=== PATIENT | male | born 2000 | race Caucasian/White ===

== ENCOUNTER 2023-11-21 13:46 | Emergency (ER) | payer BC, SELFPAY ==
[2023-11-21 13:47] VITALS: BP 143/69
--- NOTE | 2023-11-21 14:33 | ED.GENMED ---
History of Present Illness
<Kinsey Brito PA-C - Last Filed: 11/21/23 18:36>
General
Chief Complaint: Headache
Source: patient
Exam Limitations: none
Time Seen by Provider: 11/21/23 14:31
Nursing documentation reviewed up to this point in time: agreed with
History of Present Illness
History of Present Illness:
This is a 23 y/o male with a pmh of kidney stones, anxiety, depression presenting emergency department today with concerns of left anterior neck pain and left sided headache for the past 8 days or so. Patient states that this all started back on
November 01 when he felt he hyperextended his neck and started getting some pain. Patient also had some upper extremity numbness and tingling with this. Patient saw his primary care doctor who ordered plain films of his neck shoulder and upper back
which showed narrowing in C4-C5. Patient states his symptoms got better but then they came back and he started to have a pressure in his head and behind his left eye. He also had some paresthesias in his left upper and left lower extremity.
Patient also had periods of lightheadedness with this. Patient states that his headache is worse when he turns his head. Patient rates his pain an 8 out of 10. He still [facility] orthopedic walk-in clinic today who did plain imaging again but sent
him to the emergency department for further evaluation.
Past History
<Kinsey Brito PA-C - Last Filed: 11/21/23 18:36>
Past History
ED Past Medical History: None
Social History
Tobacco: Non-smoker
Review of Systems
<Kinsey Brito PA-C - Last Filed: 11/21/23 18:36>
Review of Systems
All Other Systems: ROS reviewed and negative except as documented in HPI and ROS
Phy Exam
<BETH Griggs Last Filed: 11/21/23 18:36>
Physical Exam
Physical Exam:
General: Patient is well appearing and in no acute distress; non-toxic
Skin: Warm and dry, no rashes or lesions
Head: Normocephalic, atraumatic.
Neck: Patient seen spontaneously moving cervical spine. Tenderness to palpation of the posterior neck, left anterior neck, upper trapezius, and paraspinal muscles.
Eyes: Sclera non-icteric. EOMs intact. PERRLA.
Cardiac: Regular rate and rhythm, no murmurs. No carotid bruits bilaterally.
Peripheral Vascular: No lower extremity swelling or edema.
Pulm: Normal respiratory effort
Neuro: CN II-XII intact, no focal neurologic deficits. Normal finger to nose, heel to stanley testing.
Psychiatric: Appropriate mood and affect.
Course
Karolinelt;Kinsey Brito PA-C - Last Filed: 11/21/23 18:36>
Orders/Labs/Results
Orders:
Orders
11/21/23 15:15
CT Head & Neck Angio W/wo IV Urgent
Reason For Exam: left sided numbness and tingling, left sided heada
11/21/23 15:44
IV Insert/Care/Rem.- Treatment PRN
Ketorolac [Toradol] 15 mg IV NOW STA
Metoclopramide [Reglan] 10 mg IV NOW STA
11/21/23 15:45
0.9% Sodium Chloride 500 ml [Nss] 500 ml IV BOLUS
11/21/23 16:17
0.9% Sodium Chloride 500 ml [Nss] 500 ml IV BOLUS
11/21/23 16:18
Lorazepam [Ativan] 2 mg .ROUTE .STK-MED ONE
11/21/23 16:19
Diphenhydramine [Benadryl] 50 mg .ROUTE .STK-MED ONE
11/21/23 16:21
Diphenhydramine [Benadryl] 25 mg IV NOW STA
Diphenhydramine [Benadryl] 25 mg IV NOW STA
Lorazepam [Ativan] 0.5 mg IV NOW STA
11/21/23 16:49
Basic Metabolic Panel Urgent
Complete Blood Count/With Diff Urgent
Abnormal Lab Results
11/21/23
16:49
MCH 31.1 H pg
(27.0-31.0)
11/21/23 16:49
11/21/23 16:49
Vital Signs
Initial and Last Documented VS:
Initial Vital Signs
Temp Pulse Resp BP Pulse Ox
98.1 F 95 18 143/69 99
11/21/23 13:47 11/21/23 13:47 11/21/23 13:47 11/21/23 13:47 11/21/23 13:47
Last Documented Vital Signs
Temp Pulse Resp BP Pulse Ox
98.1 F 95 16 135/87 99
11/21/23 13:47 11/21/23 18:15 11/21/23 18:15 11/21/23 18:15 11/21/23 18:15
<Kike Garcia MD - Last Filed: 11/21/23 16:26>
Orders/Labs/Results
Orders:
Orders
11/21/23 15:15
CT Head & Neck Angio W/wo IV Urgent
Reason For Exam: left sided numbness and tingling, left sided heada
11/21/23 15:44
IV Insert/Care/Rem.- Treatment PRN
Ketorolac [Toradol] 15 mg IV NOW STA
Metoclopramide [Reglan] 10 mg IV NOW STA
11/21/23 15:45
0.9% Sodium Chloride 500 ml [Nss] 500 ml IV BOLUS
11/21/23 16:17
0.9% Sodium Chloride 500 ml [Nss] 500 ml IV BOLUS
11/21/23 16:18
Lorazepam [Ativan] 2 mg .ROUTE .STK-MED ONE
11/21/23 16:19
Diphenhydramine [Benadryl] 50 mg .ROUTE .STK-MED ONE
11/21/23 16:21
Diphenhydramine [Benadryl] 25 mg IV NOW STA
Diphenhydramine [Benadryl] 25 mg IV NOW STA
Lorazepam [Ativan] 0.5 mg IV NOW STA
11/21/23 16:49
Basic Metabolic Panel Urgent
Complete Blood Count/With Diff Urgent
Abnormal Lab Results
11/21/23
16:49
MCH 31.1 H pg
(27.0-31.0)
11/21/23 16:49
11/21/23 16:49
Vital Signs
Initial and Last Documented VS:
Initial Vital Signs
Temp Pulse Resp BP Pulse Ox
98.1 F 95 18 143/69 99
11/21/23 13:47 11/21/23 13:47 11/21/23 13:47 11/21/23 13:47 11/21/23 13:47
Last Documented Vital Signs
Temp Pulse Resp BP Pulse Ox
98.1 F 95 16 135/87 99
11/21/23 13:47 11/21/23 18:15 11/21/23 18:15 11/21/23 18:15 11/21/23 18:15
Karolinelt;Kinsey Brito PA-C - Last Filed: 11/21/23 18:36>
MDM/Problems Addressed
Differential Diagnosis Includes:
ddx includes carotid artery dissection, aneurysm, subarachnoid hemorrhage, tension headache, complex migraine, cervical radiculopathy, headache,
MDM/Problems Addressed:
Headache, neck pain, neurologic symptoms:
This is a 23 y/o male with a pmh of kidney stones, anxiety, depression presenting emergency department today with concerns of left anterior neck pain and left sided headache for the past 8 days or so. Patient states that this all started back on
November 01 when he felt he hyperextended his neck and started getting some pain. Patient also had some upper extremity numbness and tingling with this. Patient saw his primary care doctor who ordered plain films of his neck shoulder and upper back
which showed narrowing in C4-C5. Physical exam, he is well-appearing, his vital signs are stable, he is afebrile. Does have some tenderness to palpation around the paracervical muscles, does have pain with movement of his neck and reproduction of
his symptoms. Considering this collection of symptoms, patient was sent for CTA which was negative for any acute intracranial abnormality, negative for any high-grade stenosis or occlusion of the arterial vascular and head or neck. Patient was
treated here in emergency department with Toradol and Reglan, patient did have some psychomotor agitation with Reglan, he is given Benadryl and Ativan. The symptoms subsequently resolved and patient states that these medications did improve his
symptoms of head pressure. Patient's symptoms likely represent a complex migraine or radiation of pain from cervical stenosis, patient is stable for discharge, patient's orthopedist that he will follow-up with.
Chronic conditions affecting care:
n/a
Acute Exacerbation and/or Progression of Chronic Illness:
n/a
<Kinsey Brito PA-C - Last Filed: 11/21/23 18:36>
*Pulse Oximetry
Patient hypoxic: no
*Critical Care Note
Total Time (30-74mins, 75-104mins- exclusive of procedures): Not Applicable
Data Reviewed
Review of Other/Old Records Reveals: Records (Reviewed ER physician documentation from 01/16/2021) and Discharge Summary (no discharge summaries in the [facility] to review )
Source: patient
<BETH Griggs Filed: 11/21/23 18:36>
Patient Management
Escalation/DeEscalation of care consider admission/obs:
Patient stable for discharge, admit not indicated
ED Attending Note
<BETH Griggs Filed: 11/21/23 18:36>
-
Portions of this chart may have been created with voice recognition software.� Occasional wrong word or��sound alike� substitutions may have occurred due to the inherent limitations of voice recognition software.
<Kike Garcia MD - Last Filed: 11/21/23 16:26>
ED Attending Note
Patient seen and examined by attending physician: Yes
I performed the substantive portion of visit, reviewed & personally made and approve the management plan that is documented in note by myself or PERI.: Yes
ED Attending Note:
23-year-old male complaining of posterior neck pain with some pain to the left side of his head and some transient paresthesias on the left side of his body days ago. This all seemed of started after hyperextending his neck in a chair. Shortly
after that he developed the posterior neck pain he heard cracks at that time. This was followed by left-sided headaches and some paresthesias to the left part of his body that last 2 to 4 days that have now resolved. Headache is worse when he
turns his head. He has no photophobia, no fever no focal neurologic symptoms at this time.
On exam patient is nontoxic in no distress. He is somewhat self splinting his neck. He is nonfocal. Speech is normal. Deputy General Counsel are normal. He is no carotid bruit. He has got some mild midline spinal cervical tenderness. No crepitus. No swelling.
Impression is essentially nontraumatic neck pain with left-sided headaches. Ongoing for weeks. Transient paresthesias of the left thigh. Workup in progress including evaluation for dissection.
After patient received his Reglan he did develop significant akathisia. He was given a dose of Benadryl and Ativan.
Discharge Plan
Departure
Patient Disposition: Home (Routine Discharge)
Date of Disposition: 11/21/23
Time of Disposition: 18:27
Patient with high blood pressure during this ER visit?: Yes
Condition: Good
Discharge Problem:
Headache, Neck pain
Instructions: Headache, Adult (DC), Neck Pain ED, BLOOD PRESSURE
Prescriptions:
No Action
ondansetron [Zofran ODT] 8 MG tablet,disintegrating
8 mg PO TID PRN (Reason: nausea/vomiting) Qty: 20 0RF
ketorolac 10 MG tablet
10 mg PO Q6HPRN PRN (Reason: pain) Qty: 20 0RF
tamsulosin [Flomax] 0.4 MG capsule
0.4 mg PO DAILY Qty: 14 0RF
oxycodone 5 MG tablet
5 mg PO Q4HPRN PRN (Reason: pain) Qty: 10 0RF
Referrals:
PRIVATE,PHYSICIAN [Family Provider] -
Activity Restrictions/Additional Instructions:
Please follow-up with your orthopedist, please continue physical therapy.
Please return emergency department should you develop visual changes, nausea or vomiting, chest pain, shortness of breath, dizziness, or any other signs or symptoms concerning to you.
Interventions
Interventions:
*Risk Screen - Suicide Last Done: 11/21/23 14:40
*General Assessment Last Done: 11/21/23 14:40
*Neglect/Abuse Screening Last Done: 11/21/23 14:40
ED- Fall Risk Assessment Last Done: 11/21/23 14:40
*ED COVID-19 Vaccine History Last Done: 11/21/23 14:40
ED- Neurological Assessment Last Done: 11/21/23 14:40
Discharge Date and Time
Print Language: MALAYSIAN
[2023-11-21 14:36] VITALS: BMI 33.7
[2023-11-21 14:42] VITALS: BP 117/83
--- NOTE | 2023-11-21 14:44 | EDRN ---
Kim ZUÑIGA in room w/ pt.
[2023-11-21 15:00] VITALS: BP 128/81
--- NOTE | 2023-11-21 15:10 | EDRN ---
Dr. Garcia in to see pt.
[2023-11-21 16:00] VITALS: BP 141/87
[2023-11-21] MEDS: REGLAN 10 MG IV (16:04)
[2023-11-21] MEDS: TORADOL 15 MG IV (16:04)
[2023-11-21] MEDS: NSS 500 IV ×2 (16:05→18:13)
--- NOTE | 2023-11-21 16:15 | EDRN ---
Post initiation of IV and while administering the Toradol pt started to develop multiple completes and hyperventilating, Post the administration of reglan pt became even worse. Unable to find Kim ZUÑIGA as in w/ other pt so, asked Dr. Garcia to
check on pt and he went in to see pt at this time.
[2023-11-21] MEDS: BENADRYL 25 MG IV (16:22)
[2023-11-21] MEDS: ATIVAN 0.5 MG IV (16:22)
--- NOTE | 2023-11-21 16:30 | EDRN ---
Pt states he remains w/ sl eye pain, but pain in base of skull and bridge of nose remain 7/10. Pt states anxious feeling is less at this time.
[2023-11-21 16:59] LABS: % Basophils 0.7 % (0-2); % Eosinophils 1.3 % (0-6); % Immature Granulocytes 0.2 % (0-0.5); % Lymphocytes 38.6 % (20.5-51.1); % Monocytes 5.4 % (1.7-9.3); % Neutrophils 53.8 % (42.2-75.2); Absolute Eosinophils 0.1 10^3/uL (0-0.7); Absolute Lymphocytes 2.2 10^3/uL (1.2-3.4); Absolute Monocytes 0.3 10^3/uL (0.1-0.6); Hemoglobin 15.5 g/dL (13.0-18.0); Mean Corp Hgb Conc. 36.9 g/dL (33.0-37.0); Mean Corpuscular Hgb 31.1 pg (27.0-31.0); Mean Corpuscular Volume 84.3 fL (80.0-94.0); Mean Platelet Volume 8.7 fL (7.4-10.4); Nucleated Red Blood Cells % 0 % (-); Platelet Count 234 10^3/uL (130-400); Red Blood Cell Count 4.98 10^6/uL (4.70-6.10); Red Cell Dist. Width 11.9 % (11.5-14.5); White Blood Cell Count 5.6 10^3/uL (4.8-10.8)
[2023-11-21 17:00] VITALS: BP 135/74
[2023-11-21 17:14] LABS: Blood Urea Nitrogen 15 mg/dl (9-20); Calcium 9.4 mg/dl (8.4-10.2); Carbon Dioxide 25 mmol/L (22-30); Chloride 104 mmol/L (98-107); Estimated Creatinine Clearance > 125 ml/min; Glucose 95 mg/dl (70-99); Potassium 3.8 mmol/L (3.5-5.1); Sodium 138 mmol/L (135-145); eGFR > 60.00
--- NOTE | 2023-11-21 17:50 | EDRN ---
Pt states he is no longer feeling anxious at all though pain/pressure at base of skull is still a 7/10 and bridge of nose pain at 6/10 and eye pressure pain at 2/10 now.
[2023-11-21 18:15] VITALS: BP 135/87
== END 2023-11-21 18:41 | disposition home or self-care (01) ==
LOC: EMR 13:46
PROVIDERS: EMERGENCY PHYSICIAN Emergency Medicine
DX: R51.9 Headache, unspecified (principal); M54.2 Cervicalgia; F41.9 Anxiety disorder, unspecified; Z87.442 Personal history of urinary calculi
CPT/HCPCS: 99284; 96374; 96375; 96361; 70496; 70498; 80048; 85025; Q9967

== ENCOUNTER 2023-12-07 22:39 | Observation (INO) | payer BC, SELFPAY ==
[2023-12-07 17:25] VITALS: BP 167/92
[2023-12-07 17:44] LABS: % Basophils 0.6 % (0-2); % Eosinophils 1.9 % (0-6); % Immature Granulocytes 0.1 % (0-0.5); % Lymphocytes 32.6 % (20.5-51.1); % Neutrophils 58.8 % (42.2-75.2); Absolute Eosinophils 0.1 10^3/uL (0-0.7); Absolute Lymphocytes 2.2 10^3/uL (1.2-3.4); Absolute Monocytes 0.4 10^3/uL (0.1-0.6); Hematocrit 45.7 % (39.0-52.0); Hemoglobin 16.8 g/dL (13.0-18.0); Mean Corp Hgb Conc. 36.8 g/dL (33.0-37.0); Mean Corpuscular Hgb 32.1 pg (27.0-31.0); Mean Corpuscular Volume 87.2 fL (80.0-94.0); Mean Platelet Volume 8.7 fL (7.4-10.4); Nucleated Red Blood Cells % 0 % (-); Platelet Count 277 10^3/uL (130-400); Red Blood Cell Count 5.24 10^6/uL (4.70-6.10); Red Cell Dist. Width 11.8 % (11.5-14.5); White Blood Cell Count 6.8 10^3/uL (4.8-10.8)
[2023-12-07 17:57] LABS: ALT (SGPT) 33 U/L (0-50); AST (SGOT) 25 U/L (17-59); Alkaline Phosphatase 71 U/L (38-126); Blood Urea Nitrogen 18 mg/dl (9-20); Calcium 9.9 mg/dl (8.4-10.2); Carbon Dioxide 29 mmol/L (22-30); Chloride 101 mmol/L (98-107); Glucose 80 mg/dl (70-99); Sodium 138 mmol/L (135-145); Total Bilirubin 0.7 mg/dl (0.2-1.3); Total Protein 7.8 g/dl (6.3-8.2); eGFR > 60.00
--- NOTE | 2023-12-07 18:07 | ED.GENMED ---
History of Present Illness
<Adrianna Espinal POLYSTYRENE MOLDING MACHINE TENDER - Last Filed: 12/07/23 23:09>
General
Chief Complaint: Weakness
Source: patient
Exam Limitations: none
Time Seen by Provider: 12/07/23 18:07
Nursing documentation reviewed up to this point in time: agreed with
History of Present Illness
History of Present Illness:
23-year-old male with history of significant hyperextension of his neck 10/13, next day had left side neck pain
11/07 waves of 'strange feeling like when you hit your funny bone from left side of head down left side of body to ends of arm and leg.
11/09 PCP assumed herniated disc
11/10 began with intermittent nausea, no vomiting and continuing pain left side body
11/11 pressure around his nose then spread to entire left side of head'felt like my brain was being squeezed and something's gonna pop.'
Holding his head in place with his hands seemed to relieve some of the pressure.
has been having waxing and waning pressure in his head, behind his eyes, 'feels like my eyes are going to pop out sometimes,' neck pain and feeling off balance at times since.
Evaluated here on 11/21/23, head/neck CTA unremarkable at that time.
Has seen PCP who referred to orthopedics. Orthopedics ordered MRI w/o IV contrast which pt had on 12/13 and got the result on his phone today. Called to make a f/u appointment with ortho but nothing available until Dec. so he came here with his mom
who is also concerned about his persistent symptoms.
Pt states he's been resting or laying down most of this past month due to symptoms
Neuro exam is unremarkable now.
Past History
<Adrianna Espinal, POLYSTYRENE MOLDING MACHINE TENDER - Last Filed: 12/07/23 23:09>
Past History
ED Past Medical History: None
Social History
Tobacco: Non-smoker
Review of Systems
<Adrianna Espinal [employer]STYRENE MOLDING MACHINE TENDER - Last Filed: 12/07/23 23:09>
Review of Systems
Allergies reviewed?: Yes
All Other Systems: ROS reviewed and negative except as documented in HPI and ROS
Constitutional: Denies fever or fatigue
Respiratory: Denies trouble breathing
Cardiac: Denies chest pain
ABD/GI: Reports nausea; Denies abdominal pain or vomiting
: Reports no symptoms
Musculoskeletal: Reports neck pain
Skin: Reports no symptoms
Neurological: Reports headache
Phy Exam
<Adrianna Espinal [employer]STYRENE MOLDING MACHINE TENDER - Last Filed: 12/07/23 23:09>
Physical Exam
Physical Exam:
GENERAL: No acute distress. A&Ox3.
CONSTITUTIONAL: Afebrile.
EYES: PERRL, conjunctivae normal, sharp discs
Neck: Supple
ENMT: moist mucus membranes, Pharynx nl
RESPIRATORY: Regular respirations, nonlabored, lungs clear.
CARDIOVASCULAR: Regular rate and rhythm, no murmurs, no rubs.
GI: Soft, nontender, normal BS
MUSCULOSKELETAL: Moves with ease. Well perfused.
SKIN: Warm, dry, pink
PSYCH: Normal mood and affect. Well kept, interactive and appropriate
NEUROLOGIC: Awake, alert and oriented. Speech clear. Cranial nerves II through XII intact. [id number] intact. Ambulating well with steady gait. No focal neurological deficits
Course
<Adrianna Espinal [employer]ST[employer] MOLDING MACHINE TENDER - Last Filed: 12/07/23 23:09>
Orders/Labs/Results
Orders:
Orders
12/07/23 Breakfast
Regular
12/07/23 17:33
Complete Blood Count/With Diff Urgent
Comprehensive Metabolic Panel Urgent
Protime/PTT Urgent
12/07/23 22:03
Admit/Transfer Patient As Directed
Co-Sign Provider:
Level of Care: Observation services
Assign to:: Medical/Surgical
Physician / Group: angel
Diagnosis: neck pain
Code Status As Directed
Resuscitation Status: Full Code
PRN Pain Medication Management As Directed
May give lesser potent ordered pain med per pt: Yes
preference::
Protocol:: Medication orders for pain may be administered in a
manner that supports deferring to patient preference
when the pt is:
- Requesting an ordered lesser potent pain medication.
Least to most potent pain medications are defined
as: acetaminophen < NSAID < tramadol < opioids
(morphine, oxycodone, hydromorphone).
- Requesting a lesser dose of the same medication IF
ORDERED.
- Requesting a less intrusive route of administration
if both routes are prescribed by the provider (PO <
IV).
12/07/23 22:05
Neurosurgery Consult Routine
Consulting Provider: Augustin Lee
Was physician already notified: Yes
12/07/23 22:53
Acetaminophen [Tylenol] 650 mg PO Q4HPRN PRN
Bisacodyl [Dulcolax] 10 mg RECTAL [id number] PRN
Docusate W/Senna [Senokot-S] 1 tablet PO BIDPRN PRN
Polyethylene Glycol Powder [Miralax] 17 grams PO DAILYPRN PRN
12/07/23 22:53
Cervical Spine Without & W [MR Cervical Spine Without & W] Routine
Comment:
Reason For Exam: neck pain
Recent pill cam endoscopy?: No
MRI Brain [MR Brain W/o & With Contrast] Routine
Comment:
Reason For Exam: head pressure
Recent pill cam endoscopy?: No
Activity As Directed
Activity Level: As Tolerated
Pneumatic Compression Sleeves As Directed
Type: Knee high
Vital Signs As Directed
Frequency: Per unit guidelines
DX Deep Vein Thrombosis Video Routine
12/07/23 22:58
Cyclobenzaprine HCl [Flexeril] 5 mg PO DAILYPRN PRN
12/08/23 06:00
Basic Metabolic Panel IN AM
Complete Blood Count/No Diff IN AM
Abnormal Lab Results
12/07/23
17:33
MCH 32.1 H pg
(27.0-31.0)
12/07/23 17:33
12/07/23 17:33
Vital Signs
Initial and Last Documented VS:
Initial Vital Signs
Temp Pulse Resp BP Pulse Ox
98.4 F 93 18 167/92 99
12/07/23 17:25 12/07/23 17:25 12/07/23 17:25 12/07/23 17:25 12/07/23 17:25
Last Documented Vital Signs
Temp Pulse Resp BP Pulse Ox
97.9 F 77 18 136/63 98
12/07/23 22:45 12/07/23 22:45 12/07/23 22:45 12/07/23 22:45 12/07/23 22:45
<Lenard Roque MD - Last Filed: 12/07/23 19:11>
Orders/Labs/Results
Orders:
Orders
12/07/23 Breakfast
Regular
12/07/23 17:33
Complete Blood Count/With Diff Urgent
Comprehensive Metabolic Panel Urgent
Protime/PTT Urgent
12/07/23 22:03
Admit/Transfer Patient As Directed
Co-Sign Provider:
Level of Care: Observation services
Assign to:: Medical/Surgical
Physician / Group: angel
Diagnosis: neck pain
Code Status As Directed
Resuscitation Status: Full Code
PRN Pain Medication Management As Directed
May give lesser potent ordered pain med per pt: Yes
preference::
Protocol:: Medication orders for pain may be administered in a
manner that supports deferring to patient preference
when the pt is:
- Requesting an ordered lesser potent pain medication.
Least to most potent pain medications are defined
as: acetaminophen < NSAID < tramadol < opioids
(morphine, oxycodone, hydromorphone).
- Requesting a lesser dose of the same medication IF
ORDERED.
- Requesting a less intrusive route of administration
if both routes are prescribed by the provider (PO <
IV).
12/07/23 22:05
Neurosurgery Consult Routine
Consulting Provider: Augustin Lee
Was physician already notified: Yes
12/07/23 22:53
Acetaminophen [Tylenol] 650 mg PO Q4HPRN PRN
Bisacodyl [Dulcolax] 10 mg RECTAL [id number] PRN
Docusate W/Senna [Senokot-S] 1 tablet PO BIDPRN PRN
Polyethylene Glycol Powder [Miralax] 17 grams PO DAILYPRN PRN
12/07/23 22:53
Cervical Spine Without & W [MR Cervical Spine Without & W] Routine
Comment:
Reason For Exam: neck pain
Recent pill cam endoscopy?: No
MRI Brain [MR Brain W/o & With Contrast] Routine
Comment:
Reason For Exam: head pressure
Recent pill cam endoscopy?: No
Activity As Directed
Activity Level: As Tolerated
Pneumatic Compression Sleeves As Directed
Type: Knee high
Vital Signs As Directed
Frequency: Per unit guidelines
DX Deep Vein Thrombosis Video Routine
12/07/23 22:58
Cyclobenzaprine HCl [Flexeril] 5 mg PO DAILYPRN PRN
12/08/23 06:00
Basic Metabolic Panel IN AM
Complete Blood Count/No Diff IN AM
Abnormal Lab Results
12/07/23
17:33
MCH 32.1 H pg
(27.0-31.0)
12/07/23 17:33
12/07/23 17:33
Vital Signs
Initial and Last Documented VS:
Initial Vital Signs
Temp Pulse Resp BP Pulse Ox
98.4 F 93 18 167/92 99
12/07/23 17:25 12/07/23 17:25 12/07/23 17:25 12/07/23 17:25 12/07/23 17:25
Last Documented Vital Signs
Temp Pulse Resp BP Pulse Ox
97.9 F 77 18 136/63 98
12/07/23 22:45 12/07/23 22:45 12/07/23 22:45 12/07/23 22:45 12/07/23 22:45
<Adrianna Espinal [employer] MOLDING MACHINE TENDER - Last Filed: 12/07/23 23:09>
MDM/Problems Addressed
MDM/Problems Addressed:
has been having waxing and waning pressure in his head, behind his eyes, 'feels like my eyes are going to pop out sometimes,' neck pain and feeling off balance at times since.
Evaluated here on 11/21/23, head/neck CTA unremarkable at that time.
Has seen PCP who referred to orthopedics. Orthopedics ordered MRI w/o IV contrast which pt had on 12/13 and got the result on his phone today. Called to make a f/u appointment with ortho but nothing available until Dec. so he came here with his mom
who is also concerned about his persistent symptoms.
Pt states he's been resting or laying down most of this past month due to symptoms
Neuro exam is unremarkable now.
17:33
CBC normal
CMP normal
Consulting Dr. Lee who is in surgery
9:30 p.m.
Consulted Neurosurgeon Dr. Lee who recommends brain MRI.
Copy of Cervical spine MRI from [facility] uploaded into our [facility] system
Hospitalist notified of admission
<Adrianna Espinal NP - Last Filed: 12/07/23 23:09>
*Critical Care Note
Total Time (30-74mins, 75-104mins- exclusive of procedures): Not Applicable
<Lenard Roque MD - Last Filed: 12/07/23 19:11>
Update Note
Update Note:
ED Attending Note
<Adrianna Espinal NP - Last Filed: 12/07/23 23:09>
-
Portions of this chart may have been created with voice recognition software.� Occasional wrong word or��sound alike� substitutions may have occurred due to the inherent limitations of voice recognition software.
Discharge Plan
Departure
Patient Disposition: Admit
Date of Disposition: 12/07/23
Time of Disposition: 21:31
Admit to: Med/Surg
Presentation/result/management discussed w/ accepting MD/DO: Hospitalist
Condition: Good
Discharge Problem:
Pressure in head, Frequent headaches
Interventions
Interventions:
*Risk Screen - Suicide Last Done: 12/07/23 17:25
*General Assessment Last Done: 12/07/23 17:25
*Neglect/Abuse Screening Last Done: 12/07/23 17:25
*ED COVID-19 Vaccine History Last Done: 12/07/23 17:25
*Nursing Disposition Last Done: 12/07/23 22:41
ED- Cardiac Assessment Last Done: 12/07/23 19:17
ED- Neurological Assessment Last Done: 12/07/23 19:17
ED- Pulmonary Assessment Last Done: 12/07/23 19:17
Discharge Date and Time
Discharge Date/Time: 12/07/23 22:42
[2023-12-07 18:19] LABS: APTT 28.8 Sec (23.4-35.0); INR 1.11; PT 14.3 Sec (11.4-14.6)
[2023-12-07 20:11] VITALS: BP 117/77
--- NOTE | 2023-12-07 21:33 | HPS.HSE ---
Addendum entered and electronically signed by Jared Reyna DO 12/07/23 22:58:
Patient seen and examined independently. Agree with findings and plan as set forth by BOB Quinn.
Patient is a 23y M with no significant PMH who presents to ED complaining of headache x 1 month. Patient describe initial insult at that time of leaning back quickly / hyperextending his neck followed by sense of tingling in his L face. he then
developed pressure in the bi-frontal area and behind the eyes that has persisted. Early this week his symptoms seemed changes with more R sided headache and N/V x 1.
Patient had OP MRI completed that showed signal abnormality in the cervical spine. Gadolinium enhanced imaging of the brain and spine was recommended by Radiology.
Ass:
Headache
Abnormal MRI
Plan:
Observe overnight for further evaluation and treatment.
Check MRI brain and C-spine with and without contrast.
Neurosurgery consulted by ED.
Follow for any changes in symptoms / new developments.
Original Note:
Family Physician
-
Family Physician: NOT KNOW UNKNOWN - PT DOES
Chief Complaint
-
head pressure
History of Present Illness
23 year old with PMH for kidney stones presented to us with head pressure which he felt behind his head,eyes and nose for past one month. his pain started when looked back an extended his back. last week his symptoms were very mild. he had an x
ray, which showed herniated disk. Monday he felt very right sided cluster LOPEZ. Monday, he vomited once. he did not feel the hunger. he forced himself to eat some food. today he woke up with balance problem. at present still with neck pain. his
appointment with orthopedics is not until 01/11. he went to his PCP, who send him to ER. he had MRI last week with the impression of Bulge cervical disk and recommended MRI of brain.
labs stable. admitting for further management.
Medical History
Past Medical History
Past Medical History: Reports Other
Additional Past Medical History:
kidney stones
Past Surgical History: Reports None
Additional Past Surgical History:
wisdom tooth extraction
Social History
Tobacco: Non-smoker
Alcohol: Occasional
Drug: None
Personal: Single
Living: With Family
Family History
Family History: Not pertinent
Allergies / Home Medications
Allergies reflects when Allergies were last updated in [facility].
Home Medications with original date entered in [facility]
Allergy/Medication List:
Allergies
Allergy/AdvReac Type Severity Reaction Status Date / Time
No Known Allergies Allergy Verified 12/07/23 17:27
Home Medications
acetaminophen 325 mg tablet 650 mg PO Q4HPRN PRN mild pain 12/07/23
cyclobenzaprine 5 mg tablet 5 mg PO DAILYPRN PRN muscle spasms 12/07/23
ibuprofen 600 mg tablet 600 mg PO DAILYPRN PRN neck pain 12/07/23
Review of Systems
-
Constitutional: Reports No Symptoms
EENT: Reports No Symptoms
Respiratory: Reports No Symptoms
Cardiac: Reports No Symptoms
Abdomen/GI: Reports Nausea and Vomiting
: Reports No Symptoms
Musculoskeletal: Reports No Symptoms
Skin: Reports No Symptoms
Neurological: Reports Dizzy, Headache and Weakness
Endocrine: Reports No Symptoms
Hematologic/Lymphatic: Reports No Symptoms
Psych: Reports No Symptoms
Physical Exam
Vital Signs
Vital Signs
Temp Pulse Resp BP Pulse Ox
98.4 F 93 18 117/77 100
12/07/23 17:25 12/07/23 20:11 12/07/23 17:25 12/07/23 20:11 12/07/23 20:11
Physical Exam
General: Well Developed, Well Nourished and No Apparent Distress
HEENT: NormoCephalic, Moist mucous membranes and Atraumatic
Respiratory: Clear
Cardiac: S1/S2 and Regular Rhythm; No Murmur or Rub
GI: Soft, Non Tender, Non Distended and Normal Bowel Sounds; No Organomegaly
Rectal: Deferred by Provider
Musculoskeletal: No Clubbing, No Cyanosis and No Edema
Skin: No Rash
Neuro: AO x 3 and Nonfocal/grossly intact
Psych: Calm
Laboratory Results
-
12/07/23 17:33
12/07/23 17:33
Laboratory Results
PT 14.3 Sec (11.4-14.6) 12/07/23 17:33
INR 1.11 12/07/23:
APTT 28.8 Sec (23.4-35.0) 12/07/23 17:33
Total Bilirubin 0.7 mg/dl (0.2-1.3) 12/07/23 17:33
AST 25 U/L (17-59) 12/07/23 17:33
ALT 33 U/L (0-50) 12/07/23 17:33
Alkaline Phosphatase 71 U/L (38-126) 12/07/23 17:33
Data Reviewed
-
CT Scan: Report Reviewed by me
Lab Data: Labs Reviewed by me
Impression/Plan
-
#head pressure/neck pain unclear cause
-will obtain MRI of head and C spine
-neurosurgeon consulted
-Flexeril and Tylenol continued
-head Neck CTA with No acute intracranial abnormality.No CTA evidence for high-grade stenosis or occlusion of the arterial vasculature in the head or neck.
-will obtain MRI of spine and Brain
#DVT prophylaxis
-scd
#CODE status
-full code
[2023-12-07 22:45] VITALS: BP 136/63; BMI 32.1
[2023-12-08 07:45] VITALS: BP 117/75
[2023-12-08 08:53] LABS: Blood Urea Nitrogen 19 mg/dl (9-20); Calcium 9.4 mg/dl (8.4-10.2); Carbon Dioxide 28 mmol/L (22-30); Chloride 101 mmol/L (98-107); Estimated Creatinine Clearance > 125 ml/min; Glucose 96 mg/dl (70-99); Potassium 4.1 mmol/L (3.5-5.1); Sodium 140 mmol/L (135-145); eGFR > 60.00
[2023-12-08 09:01] LABS: Hematocrit 43.8 % (39.0-52.0); Hemoglobin 16.2 g/dL (13.0-18.0); Mean Corpuscular Hgb 32.2 pg (27.0-31.0); Mean Corpuscular Volume 87.1 fL (80.0-94.0); Mean Platelet Volume 8.7 fL (7.4-10.4); Platelet Count 237 10^3/uL (130-400); Red Blood Cell Count 5.03 10^6/uL (4.70-6.10); Red Cell Dist. Width 11.8 % (11.5-14.5); White Blood Cell Count 6.2 10^3/uL (4.8-10.8)
--- NOTE | 2023-12-08 11:48 | W.PN.HOSP.TC ---
Today's Communication/Plan
-
Follow-up MRI brain and C-spine
Follow-up neurosurgery recommendations
Possible discharge later
Assessment / Plan
Assessment / Plan
#Cervicalgia
#Cervicogenic headache
#H/O cervical vertebral herniation
-Symptoms occurred after falling from chair, heard a crack, outpatient MRI showed herniated disc in neck
-CT head and CTA head and neck were without any acute findings or evidence of high-grade stenosis
-Initially had some paresthesias down the LUE>LLE; also associated with pressure behind the left eye
-No abnormal lacrimation or sweating, suspicion for processes like Viridiana syndrome or extremely low
-5/5 strength, no sensory deficits to the upper extremities; reproducible pain to the left cervical region
-MRI of the brain and C-spine are pending, will follow-up results
-Neurology consult pending
-Flexeril Tylenol as needed for symptoms
DVT prophylaxis: scd
CODE status: Full code
Diet: House
Anticipated Discharge: Within 24 hours
Subjective/Interval History
-
Date of Service: December 08, 2023
Seen and examined at the bedside. States he does have some discomfort in the neck with pressure behind the left eye. No worse than previously, slightly better.
He denies any chest pain, shortness of breath, fevers or chills, nausea/vomiting/diarrhea, urinary issues, weakness or paresthesias.
He mentions his injury first occurred when he was leaning back on a chair, hyperextended his neck and heard a crack. He developed sensations of paresthesias into the left side extremities initially, with headache and pressure behind the left eye.
The symptoms were intermittent over the following weeks. States he had an MRI as an outpatient that showed some evidence of cervical disc herniation.
Objective Data
-
Labs:
Laboratory Results
12/08/23
08:12
WBC 6.2
Hgb 16.2
Hct 43.8
Plt Count 237
Sodium 140
Potassium 4.1
Chloride 101
Carbon Dioxide 28
BUN 19
Creatinine 0.9
Glucose 96
Calcium 9.4
Vital Signs:
Vital Signs
Temp Pulse Resp BP Pulse Ox
97.9 F 85 19 117/75 97
12/08/23 07:45 12/08/23 07:45 12/08/23 07:45 12/08/23 07:45 12/08/23 07:45
I&O
12/07/23 12/08/23 12/09/23
06:59 06:59 06:59
Intake Total 480 / 480
Balance 480 / 480
Review of Systems
-
History Source: Patient
All other systems: Reviewed and negative
Physical Exam
-
General: Well Nourished, No Apparent Distress, Comfortable and Conversant
HEENT: Normocephalic, Atraumatic, Moist Mucous Membranes and Anicteric
Respiratory: Clear to Auscultation and Non Labored Respirations; Negative Wheezes, Rales or Rhonchi
Cardiac: Regular Rhythm and S1/S2; Negative Murmur, Rub or Gallop
GI: Soft, Nontender, Nondistended and Normal Bowel Sounds
Musculoskeletal: No Clubbing, No Cyanosis, No Edema and Other (Tenderness to left-sided cervical palpation)
Skin: Warm and Dry; Negative Rash or Jaundice
Neuro: AO x 3, Nonfocal/Grossly Intact, Central Nerve's Intact and Other (5/5 MMS to all extremities, no gross sensory deficits, DTR intact. PERRL though dilated at baseline, EOMI.)
Hematologic / Lymphatic: No Lymphadenopathy
--- NOTE | 2023-12-08 12:07 | CON.NS ---
Consultation
-
Date/Time Consultation Performed: 12:15 pm; 12/08/2023
Performing Provider: Gatito
Chief Complaint
History of Present Illness
This is a neurosurgical consultation on 23-year-old gentleman, who presented with symptoms of head pressure x 1 month. He reports that the pain started when he looked back, and extended his back. He reports that he had an x-ray, which demonstrated
a herniated disc. He is also had lack of appetite, and vomiting. He felt that he was having balance difficulties, with ongoing neck pain. He went to his primary care physician, who sent him to the emergency room.
Patient had an MRI with the impression of a possible disc bulge, and it is reported that he was advised to get an MRI of the brain.
Patient presents for MRI of the brain, and spine, for reported signal abnormality in the cervical spine.
At the time of encounter, patient was an MRI scan. Therefore, unable to complete neurological examination of the patient. Mother was in the room.
Additional history was obtained to the mother. She reports that at the end of September, he was laughing, and bent his head and neck back, and then since then he has been having symptoms of bilateral neck pain, pressure-like in sensation in his head,
behind his eye, with intermittent associated nausea and vomiting. Symptoms are not constant or sustainable. He was seen approximately 1 week prior in the emergency room, at which time CT of the head and neck was negative. Mother reports that
outpatient MRI may have reported some abnormality within the cervical spine ? Syrinx? And therefore patient was advised to present for additional imaging.
Review of Systems
-
10 point review of systems was performed, including, constitutional, ENT, cardiovascular, respiratory, GI, , hematologic, neurologic, endocrinologic, musculoskeletal and was negative except for as stated in HPI.
Medication and Allergies
Home Medications
Home Medications
�Medication �Instructions �Recorded
acetaminophen 325 mg tablet 650 mg PO Q4HPRN PRN mild pain 12/07/23
cyclobenzaprine 5 mg tablet 5 mg PO DAILYPRN PRN muscle spasms 12/07/23
ibuprofen 600 mg tablet 600 mg PO DAILYPRN PRN neck pain 12/07/23
Allergies
Allergies
Allergy/AdvReac Type Severity Reaction Status Date / Time
No Known Allergies Allergy Verified 12/07/23 17:27
Physical Exam
-
Exam:
Unable to examine patient, as he was in MRI.
CTA of the head and neck performed on 11/21/2023 was reviewed. No obvious evidence of carotid irregularity is seen to suggest carotid dissection patient has dominant left vertebral artery.
CTA was reviewed with radiologist, who did not feel that there was any obvious evidence of vertebral artery abnormality/injury.
MRI of the cervical spine performed on 12/01/2023 was reviewed. Patient has a slightly retroflexed odontoid. There is a minimal disc bulge noted at C5-C6. On T2 sagittal imaging, there is a questionable hyperintensity which may be artifactual
versus real. This is not quite at apparent on STIR sagittal sequences. Thin linear signal abnormality is seen at C5-C6 down to C6-C7 which may be consistent with possible syrinx?
Problems
-
Problem Status Onset Code
Frequent headaches R51.9
Pressure in head R51.9
Assessment / Plan
-
23 yo M presents with symptoms of head pressure, neck pain, and nausea and vomiting.
Will follow-up on MRI of the brain/cervical spine.
Discussed CTA with radiologist, Dr. Baldemar Ruth, who feels confidently that there is no obvious evidence of vertebral artery abnormality. He does not recommend obtaining an MRA.
--- NOTE | 2023-12-08 14:51 | CM ---
Patient was admitted under OBS, OBS letter completed and placed on chart. Patient lives with parents, is independent with adl's and ambulation, no dme.
Pharmacy; [facility]
Plan; Home with parents when stable.
[2023-12-08 15:35] VITALS: BP 123/82
[2023-12-08 22:23] VITALS: BP 120/78
[2023-12-08 23:00] VITALS: BP 136/93
[2023-12-08] MEDS: FLEXERIL 5 MG PO (23:13)
[2023-12-08] MEDS: TYLENOL 650 MG PO (23:14)
--- NOTE | 2023-12-08 23:25 | PTCARENOTE ---
Patient complained of worsening neck pain overnight that began to radiate from left to right side of neck as well as 'head pressure.' VSS. Pt. stated that when he went into the bathroom he started to feel dizzy so he returned back to bed. Pt. also
c/o new difficulty with swallowing which he 'has had in the past a few times but it has gone away on its own.' Bedside swallow passed w/out issue. No neck swelling observed by this nurse. Flexeril and tylenol given per PRN order. Provider notified.
Plan of care ongoing.
[2023-12-09] MEDS: MOTRIN 600 MG PO (01:06)
--- NOTE | 2023-12-09 02:29 | W.PN.UPDATE ---
Update Note
Progress Note Update
1900 Notified by RN that patient stated he was having difficulty swallowing. RN performed bedside swallow, which pt passed. VSS no stridor speaking complete sentences
2300 notified by RN that patient stated 'the neck pain is worsening and he feels like his neck is stiff and bulging.' Pt asking for provider to come to bedside to assess him. He was given flexeril, tylenol and motrin for pain and neck spasm
0100 On assessment, patient resting comfortably in bed. VSS, no stridor noted, no SOB. Patient stated his throat pain and swallowing issues have subsided. He is just complaining of right sided head pain, specifically pressure 3/10 pain. He pointed
to the front on his head and occipital region. He denies photophobia, phonophobia, osmophobia. He denies history of migraines or family history of migraines. He denies nausea, dizziness or lightheadedness. Denies weakness or paresthesias.
[2023-12-09 07:00] VITALS: BP 117/78
--- NOTE | 2023-12-09 11:30 | W.PN.HOSP.TC ---
Today's Communication/Plan
-
Follow-up neurosurgery recommendations for syrinx
Continue with as needed Tylenol and Flexeril
Assessment / Plan
Assessment / Plan
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
#Cervicalgia
#Cervicogenic headache
#H/O cervical vertebral herniation
-Symptoms occurred after falling from chair, heard a crack, outpatient MRI showed herniated disc in neck
-CT head and CTA head and neck were without any acute findings or evidence of high-grade stenosis
-Initially had some paresthesias down the LUE>LLE; also associated with pressure behind the left eye
-No abnormal lacrimation or sweating, suspicion for processes like Viridiana syndrome or extremely low
-5/5 strength, no sensory deficits to the upper extremities; reproducible pain to the left cervical region
-Neurology consult pending, will defer to them for decision on this inpatient intervention
-Flexeril and Tylenol as needed for symptoms
#Thyroid nodule
-Noted on his MRI yesterday, 6 mm in size
-Will need to follow-up with PCP for TSH and thyroid US
DVT prophylaxis: scd
CODE status: Full code
Diet: House
Anticipated Discharge: Within 24 hours
Subjective/Interval History
-
Date of Service: December 09, 2023
Seen and examined at the bedside. Overnight he had recurrent of his symptoms, received Tylenol and cyclobenzaprine with relief. Seems a little bit tired today, did not sleep well following that.
He denies any chest pain, shortness of breath, fevers or chills, nausea, vomiting, diarrhea, urinary issues. He states that he does occasionally get tingling down into the tips of his fingers, other denies any outright weakness. States that his
tenderness to the posterior portions of his neck is still present but better.
Objective Data
-
Vital Signs:
Vital Signs
Temp Pulse Resp BP Pulse Ox
97.5 F 75 16 117/78 100
12/09/23 07:00 12/09/23 07:00 12/09/23 07:00 12/09/23 07:00 12/09/23 07:00
I&O
12/08/23 12/09/23 12/10/23
06:59 06:59 06:59
Intake Total 480 / 480 480 / 480
Balance 480 / 480 480 / 480
Review of Systems
-
History Source: Patient
All other systems: Reviewed and negative
Physical Exam
-
General: No Apparent Distress and Comfortable
HEENT: Normocephalic, Atraumatic, Moist Mucous Membranes and Anicteric
Respiratory: Clear to Auscultation and Non Labored Respirations
Cardiac: Regular Rhythm and S1/S2; Negative Murmur, Rub or Gallop
GI: Soft, Nontender, Nondistended and Normal Bowel Sounds
Musculoskeletal: No Clubbing, No Cyanosis and No Edema
Skin: Warm and Dry; Negative Rash
Neuro: AO x 3, No Motor Deficits, Central Nerve's Intact, No Sensory Deficits and DTR's Intact & Symmetrica; Negative Tremors
Data Reviewed
-
MRI: Report Reviewed by me and Discussed with Patient
Labs: Labs Reviewed by me and Discussed with Patient
--- NOTE | 2023-12-09 13:40 | W.DCSUMMARY ---
Discharge Summary
Discharge Data
Date of Admission: 12/07/23
Date of Discharge: 12/09/23
-
Pending Results: No
Hospital Course
Presented with neck pain and discomfort behind the left eye. Recently had a injury where he heard a crack in his neck. Outpatient MRI showed cervical vertebral herniation. Upon arrival here he had no focal neurological deficits that did have
intermittent symptoms while hospitalized. MRI of the brain showed mild herniation of C5/C6 annulus. Also demonstrated syrinx, and low-lying cerebellar tonsils though not meeting criteria for Chiari malformation. Symptoms were managed with Tylenol
and Flexeril throughout hospitalization. Discharged with follow-up to PCP and neurosurgery.
Of note, MRI showed 6 mm thyroid nodule. Patient should have follow-up with PCP for thyroid ultrasound and TSH testing.
Discharge Plan
-
Patient Disposition: Home (Routine Discharge)
Discharge Diagnosis/Procedures: Cervicalgia
Syrinx
Condition: Good
Diet: No restrictions
Activity: As tolerated
Driving Restrictions: As prior to admission
Bathing Restrictions: None
Blood Work: N/A
Others Tests: N/A
Specialty Instructions: Weigh Daily- Call MD for wt gain/loss 3 lbs overnight/5 lbs in 1 week
Instructions: Neck pain
Referrals:
Kike Arriaga, [Community] - (If needed)
Berna Mederos MD [Active] - in less than 1 week (If needed)
UNKNOWN - PT DOES,NOT KNOW [Family Provider] -
Additional Discharge Medication Instructions: Continue Tylenol every 4 hours as needed
Continue cyclobenzaprine 5 mg daily as needed
Continue ibuprofen as needed, avoid excess NSAIDs (ibuprofen, Motrin, Aleve, naproxen)
Prescriptions:
Continued
acetaminophen 325 mg Tablet
650 mg PO Q4HPRN PRN (Reason: mild pain)
ibuprofen 600 mg tablet
600 mg PO DAILYPRN PRN (Reason: neck pain)
cyclobenzaprine 5 mg tablet
5 mg PO DAILYPRN PRN (Reason: muscle spasms)
Discharge Orders:
Discharge Patient (As Directed); Ordered 12/09/23
Ordered By: Raimundo Ly
Discharge Date and Time
Print Language: LAO
[2023-12-09 14:23] VITALS: BP 133/73
== END 2023-12-09 14:30 | disposition home or self-care (01) ==
LOC: 4 WEST ACU 22:39
PROVIDERS: Registered Nurse; Student in an Organized Health Care Education/Training Program; ADMITTING PHYSICIAN Hospitalist; ATTENDING PHYSICIAN Internal Medicine; EMERGENCY PHYSICIAN Emergency Medicine; OTHER PHYSICIAN Neurological Surgery
DX: G44.86 Cervicogenic headache (principal); R53.1 Weakness; R11.2 Nausea with vomiting, unspecified; R26.89 Other abnormalities of gait and mobility; R63.0 Anorexia; E04.1 Nontoxic single thyroid nodule; M50.222 Other cervical disc displacement at C5-C6 level; R13.10 Dysphagia, unspecified; R07.0 Pain in throat; Q27.8 Other specified congenital malformations of peripheral vascular system; Z87.442 Personal history of urinary calculi
CPT/HCPCS: 70553; 72156; 80048; 80053; 85025; 85027; 85610; 85730; 99285; A9575; G0378

== ENCOUNTER 2024-02-10 19:30 | Emergency (ER) | payer BC, SELFPAY ==
[2024-02-10 19:31] VITALS: BP 115/81
[2024-02-10 21:55] LABS: % Basophils 0.4 % (0-2); % Eosinophils 1.4 % (0-6); % Immature Granulocytes 0.3 % (0-0.5); % Monocytes 5.6 % (1.7-9.3); % Neutrophils 58.3 % (42.2-75.2); Absolute Eosinophils 0.1 10^3/uL (0-0.7); Absolute Lymphocytes 2.6 10^3/uL (1.2-3.4); Absolute Monocytes 0.4 10^3/uL (0.1-0.6); Absolute Neutrophils 4.5 10^3/uL (1.4-6.5); Hematocrit 43.3 % (39.0-52.0); Hemoglobin 15.9 g/dL (13.0-18.0); Mean Corp Hgb Conc. 36.7 g/dL (33.0-37.0); Mean Corpuscular Hgb 30.6 pg (27.0-31.0); Mean Corpuscular Volume 83.3 fL (80.0-94.0); Mean Platelet Volume 8.7 fL (7.4-10.4); Nucleated Red Blood Cells % 0 % (-); Platelet Count 268 10^3/uL (130-400); Red Cell Dist. Width 12.2 % (11.5-14.5); White Blood Cell Count 7.7 10^3/uL (4.8-10.8)
[2024-02-10 22:09] LABS: D-Dimer 0.36 ug/mlFEU (0.00-0.50)
--- NOTE | 2024-02-10 22:10 | ED.GENMED ---
History of Present Illness
General
Chief Complaint: Weakness
Source: patient
Exam Limitations: none
Time Seen by Provider: 02/10/24 20:50
Nursing documentation reviewed up to this point in time: agreed with
History of Present Illness
History of Present Illness:
23-year-old male presenting to the emergency department today with concerns of ongoing neck pain with radiating to the left arm left leg and weakness to the seems to be in shock waves also some discomfort to the chest some intermittent shortness of
breath. Claims that he injured his neck a few months ago and had an extensive workup including EEG, EMG, MRIs and CT scans without any obvious causes.
Past History
Past History
ED Past Medical History: None
Social History
Tobacco: Non-smoker
Review of Systems
Review of Systems
Allergies reviewed?: Yes
All Other Systems: ROS reviewed and negative except as documented in HPI and ROS
Phy Exam
Physical Exam
Physical Exam:
GENERAL: Alert , in no apparent distress
EYE: pupils equal and reactive
NECK: Supple, no significant adenopathy.
ENT: o/p clr, mmm.
CARDIAC: Regular rate and rhythm .
LUNGS: Clear breath sounds bilaterally, no acute respiratory distress, no wheezes/rales/rhonchi
ABDOMEN: Soft, without focal tenderness, no r/g, no cvat
NEUROLOGICAL: Alert and oriented, no focal neuro deficits 5 out of 5 upper and lower extremity strength normal sensation when palpating bilaterally normal finger-nose and [id number] no pronator drift
SKIN: Warm and dry, skin intact.
MUSCULOSKELETAL: No edema, well perfused.
PSYCH: Normal and appropriate interaction.
Course
Orders/Labs/Results
Orders:
Orders
02/10/24 19:35
Electrocardiogram (*1) Urgent
Reason for Study: Fatigue / Weakness
EKG- Treatment ONCE
02/10/24 21:15
CR Chest - 2 Views Urgent
Comment:
Reason For Exam: cp
02/10/24 21:49
Complete Blood Count/With Diff Urgent
Comprehensive Metabolic Panel Urgent
D-Dimer Urgent
Magnesium Urgent
TSH Urgent
Troponin I Urgent
Abnormal Lab Results
02/10/24
21:49
Potassium 3.4 L mmol/L
(3.5-5.1)
02/10/24 21:49
02/10/24 21:49
Vital Signs
Initial and Last Documented VS:
Initial Vital Signs
Temp Pulse Resp BP Pulse Ox
98 F 104 20 115/81 99
02/10/24 19:31 02/10/24 19:31 02/10/24 19:31 02/10/24 19:31 02/10/24 19:31
Last Documented Vital Signs
Temp Pulse Resp BP Pulse Ox
98 F 104 20 128/66 100
02/10/24 19:31 02/10/24 19:31 02/10/24 19:31 02/10/24 22:16 02/10/24 22:16
MDM/Problems Addressed
MDM/Problems Addressed:
23-year-old male presenting to the emergency department today with concerns of ongoing symptoms into his left arm and left lower extremity. Had a neck injury few months ago and had an extensive workup including MRI CT angiogram as well as EMG and
EEG without specific findings. Here he is in no distress and has no focal neurologic deficits. Mildly tachycardic upon arrival D-dimer was ordered to ensure there is no PE considering his some degree of shortness of breath which was negative
making PE very unlikely troponin negative EKG normal chest x-ray without acute abnormalities. Patient without emergent findings he was advised to follow-up with neurology with his ongoing symptoms.
*Critical Care Note
Total Time (30-74mins, 75-104mins- exclusive of procedures): Not Applicable
ED Attending Note
-
Portions of this chart may have been created with voice recognition software.� Occasional wrong word or��sound alike� substitutions may have occurred due to the inherent limitations of voice recognition software.
Discharge Plan
Departure
Patient Disposition: Home (Routine Discharge)
Date of Disposition: 02/10/24
Time of Disposition: 23:16
Patient with high blood pressure during this ER visit?: No
Condition: Good
Covid-19: Not Applicable
Discharge Problem:
Weakness of extremity
Instructions: Generalized Weakness (DC)
Prescriptions:
New
prednisone 50 mg tablet
50 mg PO DAILY 5 Days Qty: 5 0RF
No Action
acetaminophen 325 mg Tablet
650 mg PO Q4HPRN PRN (Reason: mild pain)
ibuprofen 600 mg tablet
600 mg PO DAILYPRN PRN (Reason: neck pain)
cyclobenzaprine 5 mg tablet
5 mg PO DAILYPRN PRN (Reason: muscle spasms)
Referrals:
SHARON MONTES DE OCA CRNP [Family Provider] -
Giovanny Arce MD [Active] - Follow up in 5-7 days
Activity Restrictions/Additional Instructions:
You came to the emergency department today with concerns of ongoing weakness and discomfort. Here you had a reassuring assessment. Please follow closely with neurology for reassessment. Return to the emergency department any worsening, new or
concerning symptoms.
Interventions
Interventions:
*Risk Screen - Suicide Last Done: 02/10/24 19:31
*General Assessment Last Done: 02/10/24 22:16
*Neglect/Abuse Screening Last Done: 02/10/24 22:39
*ED COVID-19 Vaccine History Last Done: 02/10/24 22:16
ED- Cardiac Assessment Last Done: 02/10/24 22:38
ED- Neurological Assessment Last Done: 02/10/24 22:38
ED- Pulmonary Assessment Last Done: 02/10/24 22:38
Discharge Date and Time
Print Language: GHANAIAN
[2024-02-10 22:11] LABS: ALT (SGPT) 32 U/L (0-50); AST (SGOT) 25 U/L (17-59); Albumin 4.8 g/dl (3.5-5.0); Alkaline Phosphatase 68 U/L (38-126); Blood Urea Nitrogen 17 mg/dl (9-20); Calcium 9.7 mg/dl (8.4-10.2); Carbon Dioxide 27 mmol/L (22-30); Chloride 100 mmol/L (98-107); Glucose 99 mg/dl (70-99); Potassium 3.4 mmol/L (3.5-5.1); Sodium 139 mmol/L (135-145); Total Bilirubin 0.5 mg/dl (0.2-1.3); Total Protein 7.4 g/dl (6.3-8.2); eGFR > 60.00
[2024-02-10 22:16] VITALS: BP 128/66
[2024-02-10 22:27] LABS: Troponin I < 0.012 ng/ml
[2024-02-10 22:41] LABS: TSH 1.31 uIU/ml (0.47-4.68)
[2024-02-10] MEDS: DECADRON 10 MG PO (23:42)
== END 2024-02-11 00:10 | disposition home or self-care (01) ==
LOC: EMR 19:30
PROVIDERS: Physician Assistant; EMERGENCY PHYSICIAN Student in an Organized Health Care Education/Training Program; FAMILY PHYSICIAN Nurse Practitioner Gerontology
DX: R53.1 Weakness (principal)
CPT/HCPCS: 99285; 71046; 80053; 83735; 84443; 84484; 85025; 85379; 93005

== ENCOUNTER 2024-02-12 14:54 | Emergency (ER) | payer BC, SELFPAY ==
[2024-02-12 14:56] VITALS: BP 107/72
--- NOTE | 2024-02-12 15:02 | ED.MUSCINJ ---
HPI-Injury
<Devonte Ibrahim PA-C - Last Filed: 02/12/24 15:03>
General
Chief Complaint: Musculo-Skeletal Complaint
Time Seen by Provider: 02/12/24 16:08
<Lenard Roque MD - Last Filed: 02/12/24 20:49>
General
Source: patient and records
Exam Limitations: none
Nursing documentation reviewed up to this point in time: agreed with
History of Present Illness-Injury
Initial Injury comments:
23-year-old male with past medical history as documented presents to the emergency room for evaluation of left-sided weakness. Patient reports that about 3 months ago (in September) he was 'goofing off' with his friends and during this he was seated in
a chair and hyperextended his neck backwards. He says that he felt a 'snap' at the time and was having pain in the neck subsequently. He says initially in addition to pain he would have 'waves' of weakness in the left side of his body starting in
his face and moving down his arm and eventually to his leg. He was evaluated in October with a CTA head and neck which was negative and then in November had an MRI of his head and cervical spine which were unremarkable. He initially did some physical
therapy for this injury which did not help. He says that over the past week or so he has noticed that the weakness have been more consistent. He has noticed minor numbness in the arm and the leg as well. He is having continued left posterior neck
pain also reports occasional headache on the left side. Only other complaint is that he says he occasionally will feel mildly short of breath. Was seen in the emergency room 2 days ago for this and had D-dimer, troponin which were negative, chest
x-ray and EKG which were unremarkable. He was referred to his primary doctor. He says he saw his primary doctor and was sent to the emergency room to be evaluated with concern for more consistent weakness and apparently some hyperreflexia as well.
ED Provider Triage
<Devonte Ibrahim PA-C - Last Filed: 02/12/24 15:03>
-
Patient seen by provider in Triage?: Seen in Triage
23-year-old male complains of ongoing neck pain and now left-sided weakness. He has been seen providers in the [facility] system and has been attending physical therapy. He was told to come here to have his neck evaluated. Of note, patient had
MRI of his cervical spine in November of this year. He states his symptoms have progressed since then. No chest pain.
I reviewed the chart and MRI from November of this year. Will order basic labs and hold off on imaging until seen.
Past History
<Devonte Ibrahim PA-C - Last Filed: 02/12/24 15:03>
Past History
ED Past Medical History: None
Social History
Tobacco: Non-smoker
Review of Systems
<Lenard Roque MD - Last Filed: 02/12/24 20:49>
Review of Systems
All Other Systems: ROS reviewed and negative except as documented in HPI and ROS
Constitutional: Reports fatigue; Denies fever or chills
Respiratory: Reports trouble breathing
Cardiac: Denies chest pain or palpitations
ABD/GI: Denies abdominal pain, nausea or vomiting
: Denies flank pain
Musculoskeletal: Reports muscle stiffness and neck pain; Denies back pain
Neurological: Reports headache, weakness and numbness; Denies dizzy
Phy Exam
<Lenard Roque MD - Last Filed: 02/12/24 20:49>
Physical Exam
Physical Exam:
General: Awake, alert, oriented x3; no acute distress
Head: Normocephalic, atraumatic
Eyes: Conjunctiva normal, pupils equal round and reactive to light bilaterally, extraocular movements are intact
Throat: Airway intact, handling secretions
Neck: Trachea midline, patient has paraspinal and left upper trapezius tenderness but no midline tenderness in the cervical spine; he has no carotid bruits; he can rotate to approximately 45 degrees on the left before stopping due to pain; he can
rotate to nearly 90 degrees towards the right without issue
Lungs: Clear to auscultation bilaterally, no wheezing, rales, rhonchi
Heart: Regular rate and rhythm, no murmurs, gallops, or rubs
Neuro: Cranial nerves intact 2 through 12, speech fluid without dysarthria or aphasia, no limb ataxia, ambulatory in the emergency room with no ataxia; he has 4+/5 strength distal left upper extremity on alarm installer testing, 5/5 strength testing proximal
left upper extremity, right upper extremity 5/5 strength proximally and distally; on exam of his lower extremities he has 5/5 strength proximally and distally; he has a subjective sensory deficit throughout left upper and lower extremity but no
objective sensory deficit
Skin: no rash
Extremities: No edema in extremities, equal pulses in all extremities
Scores
<Lenard Roque MD - Last Filed: 02/12/24 20:49>
Heart Failure Risk
Heart Failure Risk Score: Not Applicable
Heart Score for Chest Pain Patients
STEMI patient?: Not applicable
Withdrawal Assessment of Alcohol
Withdrawal Assessment Completed?: Not applicable
Injury Course
<Devonte Ibrahim PA-C - Last Filed: 02/12/24 15:03>
Orders/Labs/Results
Orders:
Orders
02/12/24 15:07
Complete Blood Count/With Diff Urgent
Comprehensive Metabolic Panel Urgent
02/12/24 16:21
CT Head & Neck Angio W/wo IV Urgent
Comment:
Reason For Exam: left sided weakness/numbness; left neck/head pain
Cervical Collar- Treatment ONCE
Collar Type: Hard Cervical Collar
02/12/24 16:23
Electrocardiogram (*1) Urgent
Reason for Study: TIA/Stroke
NEUROLOGY CONSULT Urgent
Consulting Provider: Giovanny Arce
Was physician already notified: Yes
EKG- Treatment ONCE
02/12/24 17:08
Diphenhydramine [Benadryl] 50 mg IV NOW STA
Hydrocortisone Sod Succinate [Solu-Cortef] 200 mg IV NOW STA
02/12/24 18:00
MethylPREDNISolone. [Solu-Medrol] 500 mg 0.9% Sodium Chloride 100 ml [Nss] 100 ml IV ONCE
Abnormal Lab Results
02/12/24
15:07
MCHC 37.1 H g/dL
(33.0-37.0)
Absolute Lymphs (auto) 3.5 H 10^3/uL
(1.2-3.4)
Glucose 106 H mg/dl
(70-99)
02/12/24 15:07
02/12/24 15:07
<Lenard Roque MD - Last Filed: 02/12/24 20:49>
Orders/Labs/Results
Orders:
Orders
02/12/24 15:07
Complete Blood Count/With Diff Urgent
Comprehensive Metabolic Panel Urgent
02/12/24 16:21
CT Head & Neck Angio W/wo IV Urgent
Comment:
Reason For Exam: left sided weakness/numbness; left neck/head pain
Cervical Collar- Treatment ONCE
Collar Type: Hard Cervical Collar
02/12/24 16:23
Electrocardiogram (*1) Urgent
Reason for Study: TIA/Stroke
NEUROLOGY CONSULT Urgent
Consulting Provider: Giovanny Arce
Was physician already notified: Yes
EKG- Treatment ONCE
02/12/24 17:08
Diphenhydramine [Benadryl] 50 mg IV NOW STA
Hydrocortisone Sod Succinate [Solu-Cortef] 200 mg IV NOW STA
02/12/24 18:00
MethylPREDNISolone. [Solu-Medrol] 500 mg 0.9% Sodium Chloride 100 ml [Nss] 100 ml IV ONCE
Abnormal Lab Results
02/12/24
15:07
MCHC 37.1 H g/dL
(33.0-37.0)
Absolute Lymphs (auto) 3.5 H 10^3/uL
(1.2-3.4)
Glucose 106 H mg/dl
(70-99)
02/12/24 15:07
02/12/24 15:07
<Lenard Roque MD - Last Filed: 02/12/24 20:49>
MDM/Problems Addressed
Differential Diagnosis Includes:
Vascular injury (dissection), spinal cord injury, radiculopathy, cervical spine fracture, stroke, anxiety
MDM/Problems Addressed:
23-year-old male presents to the emergency room for evaluation of left-sided weakness�had extensive workup earlier after his initial injury to his neck but over the past week his symptoms have been worse and more persistent, referred back to the ER
by his PCP. Vital signs normal. Exam as above. He had labs sent in triage including a CBC and a CMP which were unremarkable. With symptoms now consistent left side we will repeat CTA head and neck to rule out any signs of vascular compromise.
Case discussed with neurology to evaluate.
Neurology evaluated patient agree with CTA head and neck here, hold on repeat MRI with reassuring study in November. 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 prednisone. Follow-up with neurosurgery as an
outpatient. Will place in a collar.
CTA head and neck negative for any vascular injury or other acute pathology. Case discussed with neurology will discharge on oral steroids with collar.
<Lenard Roque MD - Last Filed: 02/12/24 20:49>
*Radiology
Radiology exam reviewed: radiology read reviewed
*Pulse Oximetry
Patient hypoxic: no
*Critical Care Note
Total Time (30-74mins, 75-104mins- exclusive of procedures): Not Applicable
Data Reviewed
Review of Other/Old Records Reveals: Radiology Studies
Source: patient and records
<Lenard Roque MD - Last Filed: 02/12/24 20:49>
Patient Management
Discussion with other providers: I&C Technician (Discussed with neurology)
ED Attending Note
<Devonte Ibrahim PA-C - Last Filed: 02/12/24 15:03>
-
Portions of this chart may have been created with voice recognition software.� Occasional wrong word or��sound alike� substitutions may have occurred due to the inherent limitations of voice recognition software.
Discharge Plan
Departure
Prescriptions:
No Action
acetaminophen 325 mg Tablet
650 mg PO Q4HPRN PRN (Reason: mild pain)
ibuprofen 600 mg tablet
600 mg PO DAILYPRN PRN (Reason: neck pain)
cyclobenzaprine 5 mg tablet
5 mg PO DAILYPRN PRN (Reason: muscle spasms)
prednisone 50 mg tablet
50 mg PO DAILY 5 Days Qty: 5 0RF
Referrals:
SHARON MONTES DE OCA CRNP [Family Provider] -
Interventions
Interventions:
*Risk Screen - Suicide Last Done: 02/12/24 14:56
*General Assessment Last Done: 02/12/24 14:56
*Neglect/Abuse Screening Last Done: 02/12/24 14:56
*ED COVID-19 Vaccine History Last Done: 02/12/24 14:56
ED-Musculoskeletal Assessment Last Done: 02/12/24 18:00
Discharge Date and Time
Print Language: AFGHAN
[2024-02-12 15:25] LABS: % Basophils 0.4 % (0-2); % Eosinophils 0.4 % (0-6); % Immature Granulocytes 0.4 % (0-0.5); % Lymphocytes 38.4 % (20.5-51.1); % Monocytes 4.5 % (1.7-9.3); % Neutrophils 55.9 % (42.2-75.2); Absolute Lymphocytes 3.5 10^3/uL (1.2-3.4); Absolute Monocytes 0.4 10^3/uL (0.1-0.6); Absolute Neutrophils 5.1 10^3/uL (1.4-6.5); Hematocrit 42.1 % (39.0-52.0); Hemoglobin 15.6 g/dL (13.0-18.0); Mean Corp Hgb Conc. 37.1 g/dL (33.0-37.0); Mean Corpuscular Volume 83.5 fL (80.0-94.0); Mean Platelet Volume 8.6 fL (7.4-10.4); Nucleated Red Blood Cells % 0 % (-); Platelet Count 249 10^3/uL (130-400); Red Blood Cell Count 5.04 10^6/uL (4.70-6.10); Red Cell Dist. Width 12.7 % (11.5-14.5); White Blood Cell Count 9.1 10^3/uL (4.8-10.8)
[2024-02-12 15:32] LABS: ALT (SGPT) 32 U/L (0-50); AST (SGOT) 25 U/L (17-59); Albumin 4.8 g/dl (3.5-5.0); Alkaline Phosphatase 52 U/L (38-126); Blood Urea Nitrogen 19 mg/dl (9-20); Calcium 9.4 mg/dl (8.4-10.2); Carbon Dioxide 24 mmol/L (22-30); Chloride 102 mmol/L (98-107); Glucose 106 mg/dl (70-99); Potassium 3.9 mmol/L (3.5-5.1); Sodium 141 mmol/L (135-145); Total Bilirubin 0.8 mg/dl (0.2-1.3); Total Protein 7.5 g/dl (6.3-8.2); eGFR > 60.00
[2024-02-12 17:09] VITALS: BMI 31.6
[2024-02-12] MEDS: BENADRYL 50 MG IV (18:06)
[2024-02-12] MEDS: SOLU-MEDROL 108 MG IV (18:31)
[2024-02-12 21:18] VITALS: BP 115/76
== END 2024-02-12 21:21 | disposition home or self-care (01) ==
LOC: EMR 14:54
PROVIDERS: Physician Assistant; CONSULT PHYSICIAN Psychiatry & Neurology Neurology; EMERGENCY PHYSICIAN Emergency Medicine; FAMILY PHYSICIAN Nurse Practitioner Gerontology
DX: T14.8XXA Other injury of unspecified body region, initial encounter (principal); X50.1XXA Overexertion from prolonged static or awkward postures, initial encounter
CPT/HCPCS: 99285; 96374; 96375; 70496; 70498; 80053; 85025; 93005; Q9967

== ENCOUNTER 2024-02-17 04:38 | Emergency (ER) | payer BC, SELFPAY ==
[2024-02-17 04:43] VITALS: BP 127/84
--- NOTE | 2024-02-17 05:09 | EDRN ---
Pt. arrives to ED w/ notes from this week's physical therapy visit, recommending he come to the ED for reasons including 'increased reflexes, reduced strength on lt. arm and leg compared to last week's PT, concern for spinal column involvement'.
This RN witnessed pt. ambulate from triage to RM. 8 w/ steady gait.
[2024-02-17 05:19] VITALS: BP 120/79
[2024-02-17 05:27] VITALS: BMI 30.6
[2024-02-17 06:00] VITALS: BP 120/81
--- NOTE | 2024-02-17 06:27 | ED.GENMED ---
History of Present Illness
General
Chief Complaint: Weakness
Source: patient
Time Seen by Provider: 02/17/24 06:00
History of Present Illness
History of Present Illness:
23-year-old male presents to the emergency room complaining of discomfort in his chest. He describes this as a 'pain on the left lateral chest. No shortness of breath. Pain is intermittent. Is not present now. In addition the patient complains
of a more chronic issue which is intermittent weakness in the left side of his body. Patient had a hyperextension event several months ago. He was sitting in a chair and rapidly threw his neck backwards to see something. He felt a crack at the
time and had some facial paresthesias. A week went by and then he started developing intermittent weakness in the left arm. Patient has had outpatient workup including CTA, MRI of the brain and cervical spine. No acute abnormalities were
identified. Patient was seen here in the emergency room recently for symptoms that started on a course of steroids. Symptoms improved but still occur intermittently. When he has weakness it last for several seconds and feels like it affects his
left side. In between his strength is normal. His sensation is intact though it feels somewhat 'muffled' on the left side. He is able to perform activities of daily living. Patient additionally complains of constipation. Sometimes he feels like
he cannot 'push out stool'.
Past History
Past History
ED Past Medical History: None
Social History
Tobacco: Non-smoker
Phy Exam
Physical Exam
Physical Exam:
General: Awake, Alert, Oriented X3. No acute distress.
Vitals: unremarkable
Head: Atraumatic
Eyes: Pupils equal, EOMI
Throat: Airway intact, no exudates
Neck: Trachea midline
Lungs: Clear and equal b/l
Heart: Regular rate, no murmurs
Abd: Soft, Nontender, No pulsatile mass
Neuro: Cranial nerves intact, muscle strength equal bilaterally, cerebellar exam normal
Skin: Warm, dry, no rash
Extremities: pulses equal b/l, no edema
Course
Orders/Labs/Results
Orders:
Orders
02/17/24 06:26
CR Chest - 2 Views Urgent
Comment:
Reason For Exam: chest pain
02/17/24 06:28
Electrocardiogram (*1) Urgent
Reason for Study: Chest Pain
EKG- Treatment ONCE
02/17/24 06:30
Bladder Scan- Treatment ONCE
02/17/24 06:36
Complete Blood Count/With Diff Urgent
Comprehensive Metabolic Panel Urgent
Lipase Urgent
Troponin I Urgent
Abnormal Lab Results
02/17/24
06:36
WBC 12.8 H 10^3/uL
(4.8-10.8)
MCHC 37.2 H g/dL
(33.0-37.0)
Abs Immat Gran (auto) 0.1 H 10^3/uL
(0-0.05)
Absolute Neuts (auto) 9.2 H 10^3/uL
(1.4-6.5)
Absolute Monos (auto) 0.8 H 10^3/uL
(0.1-0.6)
Glucose 107 H mg/dl
(70-99)
02/17/24 06:36
02/17/24 06:36
Vital Signs
Initial and Last Documented VS:
Initial Vital Signs
Temp Pulse Resp BP Pulse Ox
98.1 F 78 18 127/84 97
02/17/24 04:43 02/17/24 04:43 02/17/24 04:43 02/17/24 04:43 02/17/24 04:43
Last Documented Vital Signs
Temp Pulse Resp BP Pulse Ox
98.5 F 86 20 114/79 99
02/17/24 07:06 02/17/24 07:06 02/17/24 07:06 02/17/24 07:06 02/17/24 07:06
MDM/Problems Addressed
Differential Diagnosis Includes:
Chest wall pain, thorax, pericarditis, ACS
MDM/Problems Addressed:
Patient presents with left-sided chest pain. EKG shows no acute ischemic changes. Labs are unremarkable. Vital signs have remained normal. No abnormality rhythm noted on the monitor. Patient also complaining of left-sided intermittent weakness.
Physical exam is normal now. Outpatient workup has been extensive. I do not believe there is much else to offer in this regard here in the emergency room. Follow-up with neurology as an outpatient.
*Radiology
Radiology exam reviewed: radiology read reviewed
*Pulse Oximetry
Patient hypoxic: no
*EKG
Interpreted by ED Provider?: Yes
Heart Rate: 75
Rate: normal
Rhythm: sinus
[place]: normal axis
Interval: normal interval
QRS Pattern: normal QRS
Ischemia: no ischemia
*Roof Shingler Interpretation
Rate: normal
Interpretation: normal
Rhythm: sinus
*Critical Care Note
Total Time (30-74mins, 75-104mins- exclusive of procedures): Not Applicable
ED Attending Note
-
Portions of this chart may have been created with voice recognition software.� Occasional wrong word or��sound alike� substitutions may have occurred due to the inherent limitations of voice recognition software.
Discharge Plan
Departure
Patient Disposition: Home (Routine Discharge)
Date of Disposition: 02/17/24
Time of Disposition: 08:07
Patient with high blood pressure during this ER visit?: No
Condition: Good
Discharge Problem:
Chest pain
Instructions: Chest Pain PCP Follow Up
Prescriptions:
No Action
acetaminophen 325 mg Tablet
650 mg PO Q4HPRN PRN (Reason: mild pain)
ibuprofen 600 mg tablet
600 mg PO DAILYPRN PRN (Reason: neck pain)
cyclobenzaprine 5 mg tablet
5 mg PO DAILYPRN PRN (Reason: muscle spasms)
Referrals:
Sterling Kelly MD [Active] -
Marcio Carrion MD [Active] -
SHARON MONTES DE OCA CRNP [Family Provider] -
Activity Restrictions/Additional Instructions:
From a chest pain standpoint everything tested is normal. We have ruled out any serious cause for the chest discomfort. From the standpoint of the intermittent left sided weakness....I have included contact information for two neurology groups for
you to call to get the next available appointment.
Interventions
Interventions:
*Risk Screen - Suicide Last Done: 02/17/24 04:43
*General Assessment Last Done: 02/17/24 04:43
*Neglect/Abuse Screening Last Done: 02/17/24 04:43
ED- Fall Risk Assessment Last Done: 02/17/24 05:29
*ED COVID-19 Vaccine History Last Done: 02/17/24 04:43
*Nursing Disposition Last Done: 02/17/24 08:19
ED- Cardiac Assessment Last Done: 02/17/24 05:23
ED- Neurological Assessment Last Done: 02/17/24 05:23
ED- Pulmonary Assessment Last Done: 02/17/24 05:23
Discharge Date and Time
Discharge Date/Time: 02/17/24 08:21
Print Language: THAI
[2024-02-17 06:45] LABS: % Basophils 0.2 % (0-2); % Eosinophils 0.3 % (0-6); % Immature Granulocytes 0.4 % (0-0.5); % Lymphocytes 21.4 % (20.5-51.1); % Neutrophils 71.7 % (42.2-75.2); Absolute Immature Granulocytes 0.1 10^3/uL (0-0.05); Absolute Lymphocytes 2.7 10^3/uL (1.2-3.4); Absolute Monocytes 0.8 10^3/uL (0.1-0.6); Absolute Neutrophils 9.2 10^3/uL (1.4-6.5); Hematocrit 42.5 % (39.0-52.0); Hemoglobin 15.8 g/dL (13.0-18.0); Mean Corp Hgb Conc. 37.2 g/dL (33.0-37.0); Mean Corpuscular Hgb 30.7 pg (27.0-31.0); Mean Corpuscular Volume 82.7 fL (80.0-94.0); Mean Platelet Volume 8.6 fL (7.4-10.4); Nucleated Red Blood Cells % 0 % (-); Platelet Count 273 10^3/uL (130-400); Red Blood Cell Count 5.14 10^6/uL (4.70-6.10); Red Cell Dist. Width 12.2 % (11.5-14.5); White Blood Cell Count 12.8 10^3/uL (4.8-10.8)
[2024-02-17 07:02] LABS: ALT (SGPT) 33 U/L (0-50); AST (SGOT) 20 U/L (17-59); Albumin 4.6 g/dl (3.5-5.0); Alkaline Phosphatase 79 U/L (38-126); Blood Urea Nitrogen 15 mg/dl (9-20); Calcium 9.8 mg/dl (8.4-10.2); Carbon Dioxide 27 mmol/L (22-30); Chloride 101 mmol/L (98-107); Estimated Creatinine Clearance > 125 ml/min; Glucose 107 mg/dl (70-99); Lipase 232 U/L (23-300); Sodium 138 mmol/L (135-145); Total Bilirubin 0.4 mg/dl (0.2-1.3); Total Protein 7.3 g/dl (6.3-8.2); eGFR > 60.00
[2024-02-17 07:06] VITALS: BP 114/79
[2024-02-17 07:07] LABS: Troponin I 0.013 ng/ml
--- NOTE | 2024-02-17 07:07 | EDRN ---
the pt was received from previous technology development intern RN, the pt is resting in stretcher in the lowest position, side rails up x2, call bhatti within reach, HOB elevated, no s/s of distress, VS WNL, the pt denies needing anything at this time, the pts mother
is currently at the pts bedside, will continue to monitor the pt closely
--- NOTE | 2024-02-17 08:05 | EDRN ---
Dr. Younger currently at the pts bedside speaking with the pt and the pts mother
== END 2024-02-17 08:21 | disposition home or self-care (01) ==
LOC: EMR 04:38
PROVIDERS: EMERGENCY PHYSICIAN Emergency Medicine; FAMILY PHYSICIAN Nurse Practitioner Gerontology
DX: R07.89 Other chest pain (principal); R53.1 Weakness
CPT/HCPCS: 99285; 71046; 80053; 83690; 84484; 85025; 93005

== ENCOUNTER 2024-02-20 19:39 | Emergency (ER) | payer BC, SELFPAY ==
[2024-02-20 19:41] VITALS: BP 133/81
[2024-02-20 20:01] LABS: % Basophils 0.5 % (0-2); % Eosinophils 0.5 % (0-6); % Immature Granulocytes 0.5 % (0-0.5); % Lymphocytes 33.2 % (20.5-51.1); % Monocytes 5.5 % (1.7-9.3); % Neutrophils 59.8 % (42.2-75.2); Absolute Lymphocytes 2.7 10^3/uL (1.2-3.4); Absolute Monocytes 0.5 10^3/uL (0.1-0.6); Absolute Neutrophils 4.9 10^3/uL (1.4-6.5); Hematocrit 45.9 % (39.0-52.0); Hemoglobin 16.9 g/dL (13.0-18.0); Mean Corp Hgb Conc. 36.8 g/dL (33.0-37.0); Mean Corpuscular Hgb 30.5 pg (27.0-31.0); Mean Corpuscular Volume 82.7 fL (80.0-94.0); Mean Platelet Volume 8.5 fL (7.4-10.4); Nucleated Red Blood Cells % 0 % (-); Platelet Count 289 10^3/uL (130-400); Red Blood Cell Count 5.55 10^6/uL (4.70-6.10); Red Cell Dist. Width 12.1 % (11.5-14.5); White Blood Cell Count 8.1 10^3/uL (4.8-10.8)
[2024-02-20 20:29] LABS: ALT (SGPT) 39 U/L (0-50); AST (SGOT) 25 U/L (17-59); Albumin 4.9 g/dl (3.5-5.0); Alkaline Phosphatase 65 U/L (38-126); Blood Urea Nitrogen 17 mg/dl (9-20); Calcium 9.7 mg/dl (8.4-10.2); Carbon Dioxide 22 mmol/L (22-30); Chloride 101 mmol/L (98-107); Glucose 101 mg/dl (70-99); Potassium 3.9 mmol/L (3.5-5.1); Sodium 140 mmol/L (135-145); Total Bilirubin 0.8 mg/dl (0.2-1.3); Total Protein 7.8 g/dl (6.3-8.2); eGFR > 60.00
[2024-02-20 22:06] VITALS: BP 126/82
--- NOTE | 2024-02-20 22:17 | ED.GENMED ---
History of Present Illness
General
Chief Complaint: Fatigue
Source: patient
Exam Limitations: none
Time Seen by Provider: 02/20/24 21:56
History of Present Illness
History of Present Illness:
This is a 23 year old male that comes in with c/o this feeling of an adrenal preciado. States that this has been going on for the past 3 days. State that he feels shaky and this seemed to have gone away and then he felt lethargic. Patient staes that he
feels like he is going to pass out. Patient went to the PCP today and he was told that this is his anxiety and was started on Lexapro which he has not take yet. States that he gets nauseated and he has left sided numbness of his arms and leg.
Patient states that he was here a week ago for this. Mom states that he has had head CT's and MRI's and they all are normal. States that he just needs to know that he is not dying right now. States that he has a headache, nausea, chest pain, SOB.
Denies any fever, chills, abd pain, vomiting, diarrhea, dizziness, urinary burning.
Past History
Past History
ED Past Medical History: GERD, Psychiatric (Anxiety, Depression) and Other (Neck pain ,Renal calculus, Herniated disc, Flat feet)
ED Past Surgical History: None
Social History
Tobacco: Non-smoker
Alcohol: Occasional
Personal: Single
Living: with family
Review of Systems
Review of Systems
All Other Systems: ROS reviewed and negative except as documented in HPI and ROS
Constitutional: Reports no symptoms; Denies fever or chills
EENT: Reports no symptoms
Respiratory: Reports trouble breathing; Denies cough
Cardiac: Reports chest pain
ABD/GI: Reports nausea; Denies abdominal pain, vomiting or diarrhea
: Reports no symptoms; Denies dysuria, frequency or urgency
Musculoskeletal: Reports no symptoms
Skin: Reports no symptoms
Neurological: Reports headache and other (Shaky); Denies dizzy
Psychiatric: Reports no symptoms
Phy Exam
General Physical Exam
General Presentation: well appearing and no apparent distress
General age: appears stated age
General Skin: warm and dry
General Habitus: normal
General Mental: alert and anxious
General Hydration: appears well hydrated
ENT Exam
ENT Exam: TM's normal and pharynx normal
Eye Exam
Eye Exam: EOMI
Cardiovascular Exam
Cardiovascular Exam: regular rate/rhythm, no edema, no murmur and normal peripheral pulses
Pulmonary Exam
Pulmonary Exam: lungs clear, no respiratory distress, no rales, chest non tender, no crackles, no rhonchi, no wheezing and no cough
Gastrointestinal Exam
Gastrointestinal Exam: normal bowel sounds, non tender, soft, no organomegaly, no pulsatile mass and non distended
Musculoskeletal Exam
Musculoskeletal Exam: full ROM and no edema
Skin Exam
Skin Exam: normal color, warm/dry, no rash and no petechia
Psychiatric Exam
Psychiatric Exam: normal mood/affect
Course
Orders/Labs/Results
Orders:
Orders
02/20/24 19:52
Complete Blood Count/With Diff Urgent
Comprehensive Metabolic Panel Urgent
02/20/24 22:12
Escitalopram Oxalate [Lexapro] 10 mg PO NOW STA
Abnormal Lab Results
02/20/24
19:52
Glucose 101 H mg/dl
(70-99)
02/20/24 19:52
02/20/24 19:52
Glucose slightly elevated
Vital Signs
Initial and Last Documented VS:
Initial Vital Signs
Temp Pulse Resp BP Pulse Ox
98.5 F 95 16 133/81 99
02/20/24 19:41 02/20/24 19:41 02/20/24 19:41 02/20/24 19:41 02/20/24 19:41
Last Documented Vital Signs
Temp Pulse Resp BP Pulse Ox
98.5 F 100 18 126/82 98
02/20/24 19:41 02/20/24 22:06 02/20/24 22:06 02/20/24 22:06 02/20/24 22:06
MDM/Problems Addressed
Differential Diagnosis Includes:
Anxiety,
MDM/Problems Addressed:
This is a 23 year old male that comes in with c/o feeling shaky and the Lethargic. States that he went to see the PCP today and he was ordered Lexapro but he did not start this.
Explained to patient and mom that his blood work is normal. Mom states that he has had CT of the head and MRi and all are normal. Explained that this is most likely his anxiety. Patient needs to get a Psychiatrist or Phycologist for further
evaluation. Patient to return with any concerns.
Chronic conditions affecting care: Psychiatric illness
Acute Exacerbation and/or Progression of Chronic Illness: Psychiatric illness
*Pulse Oximetry
Patient hypoxic: no
*EKG
Interpreted by ED Provider?: NA
Rate: EKG- N/A
*Retail Advertising Sales Manager Interpretation
Rate: Retail Advertising Sales Manager- N/A
*Critical Care Note
Total Time (30-74mins, 75-104mins- exclusive of procedures): Not Applicable
ED Attending Note
-
Portions of this chart may have been created with voice recognition software.� Occasional wrong word or��sound alike� substitutions may have occurred due to the inherent limitations of voice recognition software.
Discharge Plan
Departure
Patient Disposition: Home (Routine Discharge)
Date of Disposition: 02/20/24
Time of Disposition: 22:27
Patient with high blood pressure during this ER visit?: No
Condition: Good
Covid-19: Not Applicable
Discharge Problem:
Anxiety
Instructions: Anxiety, Adult ED
Prescriptions:
No Action
acetaminophen 325 mg Tablet
650 mg PO Q4HPRN PRN (Reason: mild pain)
ibuprofen 600 mg tablet
600 mg PO DAILYPRN PRN (Reason: neck pain)
cyclobenzaprine 5 mg tablet
5 mg PO DAILYPRN PRN (Reason: muscle spasms)
Referrals:
SHARON MONTES DE OCA CRNP [Family Provider] -
Activity Restrictions/Additional Instructions:
As discussed, please take the medication that was prescribed for you by the family doctor. You need to fine a Psychiatrist or Psychologist for further evaluation. Please increase your water intake to 8-8oz glasses daily. Follow up with the family
doctor as directed. IF YOU HAVE ANY OTHER CONCERNS PLEASE RETURN TO THE EMERGENCY ROOM.
Interventions
Interventions:
*Risk Screen - Suicide Last Done: 02/20/24 19:41
*General Assessment Last Done: 02/20/24 19:41
*Neglect/Abuse Screening Last Done: 02/20/24 19:41
ED- Fall Risk Assessment Last Done: 02/20/24 22:06
Discharge Date and Time
Print Language: HAITIAN
== END 2024-02-20 22:33 | disposition home or self-care (01) ==
LOC: EMR 19:39
PROVIDERS: EMERGENCY PHYSICIAN Student in an Organized Health Care Education/Training Program; FAMILY PHYSICIAN Nurse Practitioner Gerontology
DX: F41.8 Other specified anxiety disorders (principal); K21.9 Gastro-esophageal reflux disease without esophagitis
CPT/HCPCS: 99283; 80053; 85025

== ENCOUNTER 2024-06-17 23:43 | Emergency (ER) | payer BC, SELFPAY ==
[2024-06-17 23:52] VITALS: BP 150/74
[2024-06-18 01:49] VITALS: BMI 30.1
[2024-06-18 01:50] VITALS: BP 142/92
--- NOTE | 2024-06-18 01:53 | ED.GENMED ---
History of Present Illness
General
Chief Complaint: Musculo-Skeletal Complaint
Time Seen by Provider: 06/18/24 01:40
History of Present Illness
History of Present Illness:
23-year-old male with history of anxiety presenting for left calf pain. Patient reports on and off for the past year he has had pain in his left leg. He was evaluated by orthopedics in the past, was told that he may have a pinched nerve. Tonight,
he noticed sharp pain to his calf and a flushing sensation throughout his body, which prompted him to come to the hospital. Denies any injuries to the leg. Denies numbness or tingling. Denies fever. Denies chest pain or difficulty breathing.
Denies additional acute medical complaints
Past History
Past History
ED Past Medical History: GERD, Psychiatric (Anxiety, Depression) and Other (Neck pain ,Renal calculus, Herniated disc, Flat feet)
ED Past Surgical History: None
Social History
Tobacco: Non-smoker
Alcohol: Occasional
Personal: Single
Living: with family
Phy Exam
Physical Exam
Physical Exam:
General: Well-appearing, no clinical signs of dehydration, nontoxic and in no acute distress
HEENT: protecting airway
Neck: appears supple
CV: Normal heart rate
Resp: No accessory muscle use, no increased work of breathing
Abd: No distention
Extremities: No deformities, no swelling, no erythema, pulses and sensation intact. Minimal tenderness to the left calf.
Neuro: alert, no focal neurologic deficit
: deferred
Rectal: deferred
Psych: Normal affect
Skin: Intact
Course
Orders/Labs/Results
Orders:
Orders
06/18/24 01:51
US Periph Venous LOWER Ext LT Urgent
Comment:
Reason For Exam: pain in calf
Vital Signs
Initial and Last Documented VS:
Initial Vital Signs
Temp Pulse Resp BP Pulse Ox
97.8 F 92 22 150/74 100
06/17/24 23:52 06/17/24 23:52 06/17/24 23:52 06/17/24 23:52 06/17/24 23:52
Last Documented Vital Signs
Temp Pulse Resp BP Pulse Ox
97.8 F 81 18 117/76 97
06/17/24 23:52 06/18/24 03:00 06/18/24 03:00 06/18/24 03:00 06/18/24 03:00
MDM/Problems Addressed
MDM/Problems Addressed:
23-year-old male with history of anxiety presenting for left calf pain. Vital signs are normal.
On exam patient is resting comfortably, no acute distress. He does appear very anxious. Overall unremarkable examination of the left lower extremity. No swelling or deformity. No erythema or warmth. No infectious findings. No neurovascular
compromise. Ultimately suspect muscular strain. Will screen with ultrasound imaging to ensure no developing DVT.
03:30 - Ultrasound is negative. Patient remains stable. Feel stable for discharge with continued outpatient supportive therapy. Advised Tylenol or Motrin as needed for pain. Return precautions discussed and patient verbalized understanding
*Critical Care Note
Total Time (30-74mins, 75-104mins- exclusive of procedures): Not Applicable
ED Attending Note
-
Portions of this chart may have been created with voice recognition software.� Occasional wrong word or��sound alike� substitutions may have occurred due to the inherent limitations of voice recognition software.
Discharge Plan
Departure
Prescriptions:
No Action
acetaminophen 325 mg Tablet
650 mg PO Q4HPRN PRN (Reason: mild pain)
ibuprofen 600 mg tablet
600 mg PO DAILYPRN PRN (Reason: neck pain)
pantoprazole 20 mg Tablet,Delayed Release (Dr/Ec)
20 mg PO DAILY
escitalopram oxalate [Lexapro] 10 mg Tablet
10 mg PO DAILY
Referrals:
SHARON MONTES DE OCA CRNP [Family Provider] -
Interventions
Interventions:
*Risk Screen - Suicide Last Done: 06/17/24 23:52
*General Assessment Last Done: 06/18/24 01:51
*Neglect/Abuse Screening Last Done: 06/17/24 23:52
ED- Fall Risk Assessment Last Done: 06/18/24 01:52
*ED COVID-19 Vaccine History Last Done: 06/18/24 01:51
*Nursing Disposition Last Done: 06/18/24 03:26
ED-Musculoskeletal Assessment Last Done: 06/18/24 01:52
ED-Psychological Assessment Last Done: 06/18/24 01:52
Discharge Date and Time
Print Language: LIBERIAN
[2024-06-18 02:00] VITALS: BP 142/92
[2024-06-18 03:00] VITALS: BP 117/76
== END 2024-06-18 03:51 | disposition home or self-care (01) ==
LOC: EMR 23:43
PROVIDERS: EMERGENCY PHYSICIAN Student in an Organized Health Care Education/Training Program; FAMILY PHYSICIAN Nurse Practitioner Gerontology
DX: M79.662 Pain in left lower leg (principal); F41.9 Anxiety disorder, unspecified; K21.9 Gastro-esophageal reflux disease without esophagitis
CPT/HCPCS: 99284; 93971

== ENCOUNTER 2024-06-25 17:32 | Emergency (ER) | payer BC, SELFPAY ==
[2024-06-25 17:50] VITALS: BP 144/99
--- NOTE | 2024-06-25 17:52 | ED.GENMED ---
ED Provider Triage
<Guille Nichole PA-C - Last Filed: 06/25/24 17:53>
-
Patient seen by provider in Triage?: Seen in Triage
Attestation: A medical screening examination has been initiated by a qualified medical provider. Based on the assessment performed at this time, it has been determined that an emergent medical condition may exist and the patient has been informed
that further medical evaluation and possible additional diagnostic testing may be needed.
HPI: 24-year-old male presents to the emergency department for evaluation of left upper abdominal pain for the past 3 to 4 days. Describes it as a tearing sensation. Also reports darker stools today. No fevers or chills
GENERAL: Alert , in no apparent distress
EYE: No visual abnormalities.
NECK: Trachea midline
ENT: No visible abnormalities.
LUNGS: No acute respiratory distress
NEUROLOGICAL: Alert and oriented
SKIN: Skin intact. No visible changes.
MUSCULOSKELETAL: Moving extremities normally
PSYCH: Normal and appropriate interaction.
This is a medical evaluation conducted in person to initiate diagnostic evaluation and provide initial therapeutics. Please see further documentation by the treating clinician.
History of Present Illness
<Guille Nichole PA-C - Last Filed: 06/25/24 17:53>
General
Chief Complaint: Abdominal Pain
Time Seen by Provider: 06/25/24 20:32
<Tim Rosales DO - Last Filed: 06/25/24 23:26>
General
Source: patient
Exam Limitations: none
History of Present Illness
History of Present Illness:
24-year-old male who presents with left upper quadrant pain has been ongoing for 1 to 2 weeks but now sort of worse in the epigastric and left upper quadrant area. The patient states he started become worried that it could be a spleen. He has had
no nausea or vomiting. He has a gastroenterology appointment tomorrow. Denies stool changes but when he was young had severe constipation issues. Does admit that his pain is better initially when he eats but then worse in a time. After he eats.
No recent illness.
Past History
<Guille Nichole PA-C - Last Filed: 06/25/24 17:53>
Past History
ED Past Medical History: GERD, Psychiatric (Anxiety, Depression) and Other (Neck pain ,Renal calculus, Herniated disc, Flat feet)
ED Past Surgical History: None
Social History
Tobacco: Non-smoker
Alcohol: Occasional
Personal: Single
Living: with family
Phy Exam
<Tim Rosales DO - Last Filed: 06/25/24 23:26>
Physical Exam
Physical Exam:
CONSTITUTIONAL Patient alert and oriented to person, place and time. Well-appearing. Vital signs reviewed.
HEAD atraumatic, normocephalic.
EYES eyelids normal to inspection, Extraocular muscles intact, Conjunctiva normal, Sclera normal.
NECK normal range of motion, Trachea midline, no jugular venous distention.
RESPIRATORY CHEST No respiratory distress noted, Chest expansion equal, Bilateral breath sounds clear.
CARDIOVASCULAR regular rate and rhythm, Heart sounds normal.
ABDOMEN mild epigastric and left upper quadrant tenderness, Bowel sounds normal. No distention.
BACK normal inspection, no obvious deformities
UPPER EXTREMITY range of motion normal, Motor strength normal, no cyanosis, no edema.
LOWER EXTREMITY range of motion normal, Motor strength normal, no cyanosis, no edema.
NEURO Speech normal, No focal motor deficits, Carla coma scale 15, Memory normal, Cranial Nerves intact to screening exam.
SKIN skin warm, dry, and normal in color.
Course
<Guille Nichole PA-C - Last Filed: 06/25/24 17:53>
Orders/Labs/Results
Orders:
Orders
06/25/24 17:58
Complete Blood Count/With Diff Urgent
Comprehensive Metabolic Panel Urgent
Lipase Urgent
06/25/24 20:50
Iohexol [Omnipaque] 50 ml .ROUTE .STK-MED ONE
06/25/24 21:16
CT Abd/pel W Iv And Oral Contr Urgent
Comment:
Reason For Exam: upper/LUQ abd pain
Iohexol [Omnipaque] See Protocol PO NOW STA
Abnormal Lab Results
06/25/24
17:58
BUN 21 H mg/dl
(920)
06/25/24 17:58
06/25/24 17:58
Vital Signs
Initial and Last Documented VS:
Initial Vital Signs
Temp Pulse Resp BP Pulse Ox
98.4 F 96 16 144/99 97
06/25/24 17:50 06/25/24 17:50 06/25/24 17:50 06/25/24 17:50 06/25/24 17:50
Last Documented Vital Signs
Temp Pulse Resp BP Pulse Ox
98.4 F 85 20 116/75 100
06/25/24 17:50 06/25/24 21:33 06/25/24 21:33 06/25/24 22:04 06/25/24 22:06
<Tim Rosales, DO - Last Filed: 06/25/24 23:26>
Orders/Labs/Results
Orders:
Orders
06/25/24 17:58
Complete Blood Count/With Diff Urgent
Comprehensive Metabolic Panel Urgent
Lipase Urgent
06/25/24 20:50
Iohexol [Omnipaque] 50 ml .ROUTE .STK-MED ONE
06/25/24 21:16
CT Abd/pel W Iv And Oral Contr Urgent
Comment:
Reason For Exam: upper/LUQ abd pain
Iohexol [Omnipaque] See Protocol PO NOW STA
Abnormal Lab Results
06/25/24
17:58
BUN 21 H mg/dl
(9-20)
06/25/24 17:58
06/25/24 17:58
Vital Signs
Initial and Last Documented VS:
Initial Vital Signs
Temp Pulse Resp BP Pulse Ox
98.4 F 96 16 144/99 97
06/25/24 17:50 06/25/24 17:50 06/25/24 17:50 06/25/24 17:50 06/25/24 17:50
Last Documented Vital Signs
Temp Pulse Resp BP Pulse Ox
98.4 F 85 20 116/75 100
06/25/24 17:50 06/25/24 21:33 06/25/24 21:33 06/25/24 22:04 06/25/24 22:06
<DO Michael Trimble Last Filed: 06/25/24 23:26>
MDM/Problems Addressed
Differential Diagnosis Includes:
Pancreatitis, hepatitis, duodenal ulcer, peptic ulcer disease, constipation
MDM/Problems Addressed:
Abdominal pain, possible peptic or duodenal ulcer disease
<DO Michael Trimble Last Filed: 06/25/24 23:26>
*Radiology
Radiology exam reviewed: preliminary read by ED provider (No free air) and radiology read reviewed
*Pulse Oximetry
Patient hypoxic: no
*Critical Care Note
Total Time (30-74mins, 75-104mins- exclusive of procedures): Not Applicable
Data Reviewed
Source: patient and family (Mom adds that the patient started to become worried about the abdominal pain because it was persistent)
<DO Michael Trimble Last Filed: 06/25/24 23:26>
Patient Management
Escalation/DeEscalation of care consider admission/obs:
CT negative. Labs reassuring. Will trial daily PPI and Carafate 4 times daily. Has GI appointment tomorrow
ED Attending Note
<Guille Nichole PA-C - Last Filed: 06/25/24 17:53>
-
Portions of this chart may have been created with voice recognition software.� Occasional wrong word or��sound alike� substitutions may have occurred due to the inherent limitations of voice recognition software.
Discharge Plan
Departure
Patient Disposition: Home (Routine Discharge)
Date of Disposition: 06/25/24
Time of Disposition: 23:24
Patient with high blood pressure during this ER visit?: No
Discharge Problem:
Abdominal pain
Instructions: Abdominal Pain
Prescriptions:
New
sucralfate [Carafate] 100 mg/mL suspension
10 ml PO QID Qty: 400 0RF
pantoprazole [Protonix] 40 mg tablet,delayed release (DR/EC)
40 mg PO DAILY Qty: 30 0RF
Rx Instructions:
Please take 30 minutes prior to eating or drinking anything in the morning.
No Action
acetaminophen 325 mg Tablet
650 mg PO Q4HPRN PRN (Reason: mild pain)
ibuprofen 600 mg tablet
600 mg PO DAILYPRN PRN (Reason: neck pain)
pantoprazole 20 mg Tablet,Delayed Release (Dr/Ec)
20 mg PO DAILY
escitalopram oxalate [Lexapro] 10 mg Tablet
10 mg PO DAILY
Referrals:
SHARON MONTES DE OCA CRNP [Family Provider] -
Activity Restrictions/Additional Instructions:
Please see gastroenterology tomorrow as planned. Return immediately for fevers, tractable pain, intractable vomiting or any other concerns
Interventions
Interventions:
*Risk Screen - Suicide Last Done: 06/25/24 17:50
*General Assessment Last Done: 06/25/24 21:34
*Neglect/Abuse Screening Last Done: 06/25/24 17:50
*ED COVID-19 Vaccine History Last Done: 06/25/24 17:50
PD-Mxjnqu-Vcyvambroy Assessment Last Done: 06/25/24 21:06
Discharge Date and Time
Print Language: BELGIAN
[2024-06-25 18:06] LABS: % Basophils 0.5 % (0-2); % Eosinophils 0.5 % (0-6); % Immature Granulocytes 0.2 % (0-0.5); % Monocytes 4.9 % (1.7-9.3); % Neutrophils 62.9 % (42.2-75.2); Absolute Monocytes 0.3 10^3/uL (0.1-0.6); Hematocrit 49.2 % (39.0-52.0); Hemoglobin 17.5 g/dL (13.0-18.0); Mean Corp Hgb Conc. 35.6 g/dL (33.0-37.0); Mean Corpuscular Volume 87.1 fL (80.0-94.0); Mean Platelet Volume 8.5 fL (7.4-10.4); Nucleated Red Blood Cells % 0 % (-); Platelet Count 243 10^3/uL (130-400); Red Blood Cell Count 5.65 10^6/uL (4.70-6.10); Red Cell Dist. Width 12.1 % (11.5-14.5); White Blood Cell Count 6.3 10^3/uL (4.8-10.8)
[2024-06-25 18:21] LABS: ALT (SGPT) 34 U/L (0-50); AST (SGOT) 24 U/L (17-59); Albumin 4.8 g/dl (3.5-5.0); Alkaline Phosphatase 71 U/L (38-126); Blood Urea Nitrogen 21 mg/dl (9-20); Carbon Dioxide 30 mmol/L (22-30); Chloride 99 mmol/L (98-107); Glucose 93 mg/dl (70-99); Lipase 130 U/L (23-300); Potassium 4.1 mmol/L (3.5-5.1); Sodium 138 mmol/L (135-145); Total Bilirubin 1.3 mg/dl (0.2-1.3); eGFR > 60.00
[2024-06-25] MEDS: OMNIPAQUE 50 ML PO (21:21)
[2024-06-25 21:33] VITALS: BP 136/88
[2024-06-25 22:04] VITALS: BP 116/75
[2024-06-25 22:05] VITALS: BMI 31.3
== END 2024-06-25 23:50 | disposition home or self-care (01) ==
LOC: EMR 17:32
PROVIDERS: Physician Assistant; EMERGENCY PHYSICIAN Emergency Medicine; FAMILY PHYSICIAN Nurse Practitioner Gerontology
DX: R10.12 Left upper quadrant pain (principal); K21.9 Gastro-esophageal reflux disease without esophagitis; F41.9 Anxiety disorder, unspecified; F32.A Depression, unspecified; Z87.442 Personal history of urinary calculi
CPT/HCPCS: 99284; 74177; 80053; 83690; 85025; Q9967

== ENCOUNTER 2024-08-03 00:27 | Emergency (ER) | payer BC, SELFPAY ==
[2024-08-03 00:31] VITALS: BP 117/84
[2024-08-03 01:01] LABS: % Basophils 0.3 % (0-2); % Eosinophils 0.1 % (0-6); % Immature Granulocytes 0.2 % (0-0.5); % Lymphocytes 18.5 % (20.5-51.1); % Monocytes 5.3 % (1.7-9.3); % Neutrophils 75.6 % (42.2-75.2); Absolute Lymphocytes 1.7 10^3/uL (1.2-3.4); Absolute Monocytes 0.5 10^3/uL (0.1-0.6); Absolute Neutrophils 7.1 10^3/uL (1.4-6.5); Hematocrit 43.9 % (39.0-52.0); Hemoglobin 16.2 g/dL (13.0-18.0); Mean Corp Hgb Conc. 36.9 g/dL (33.0-37.0); Mean Corpuscular Volume 83.9 fL (80.0-94.0); Mean Platelet Volume 8.5 fL (7.4-10.4); Nucleated Red Blood Cells % 0 % (-); Platelet Count 252 10^3/uL (130-400); Red Blood Cell Count 5.23 10^6/uL (4.70-6.10); Red Cell Dist. Width 12.1 % (11.5-14.5); White Blood Cell Count 9.4 10^3/uL (4.8-10.8)
[2024-08-03 01:25] LABS: ALT (SGPT) 39 U/L (0-50); AST (SGOT) 24 U/L (17-59); Albumin 4.9 g/dl (3.5-5.0); Alkaline Phosphatase 83 U/L (38-126); Blood Urea Nitrogen 19 mg/dl (9-20); Calcium 9.7 mg/dl (8.4-10.2); Carbon Dioxide 25 mmol/L (22-30); Chloride 106 mmol/L (98-107); Glucose 103 mg/dl (70-99); Potassium 3.6 mmol/L (3.5-5.1); Sodium 142 mmol/L (135-145); Total Bilirubin 0.9 mg/dl (0.2-1.3); Total Protein 7.6 g/dl (6.3-8.2); eGFR > 60.00
--- NOTE | 2024-08-03 01:30 | ED.GENMED ---
History of Present Illness
General
Chief Complaint: Weakness
Source: patient
Exam Limitations: none
Time Seen by Provider: 08/03/24 01:11
History of Present Illness
History of Present Illness:
See MDM
Past History
Past History
ED Past Medical History: GERD, Psychiatric (Anxiety, Depression) and Other (Neck pain ,Renal calculus, Herniated disc, Flat feet)
ED Past Surgical History: None
Social History
Tobacco: Non-smoker
Alcohol: Occasional
Personal: Single
Living: with family
Phy Exam
Physical Exam
Physical Exam:
See MDM
Course
Orders/Labs/Results
Orders:
Orders
08/03/24 00:41
ECG [Electrocardiogram (*1)] Urgent
Reason for Study: Shortness of Breath
Cardiology Consult: Unknown
08/03/24 00:42
EKG- Treatment ONCE
08/03/24 00:53
Complete Blood Count/With Diff Urgent
Comprehensive Metabolic Panel Urgent
TSH Reflex To Free T4 Urgent
Comment: ADD ON
08/03/24 01:29
Add On- LAB Urgent
Tests Added?: tsh reflex free T4
08/03/24 01:30
CR Chest - 2 Views Urgent
Comment:
Reason For Exam: SOB
08/03/24 01:34
COVID-19 Antigen Urgent
Source: Nasal Swab
Influenza A+B Rapid Molecular Urgent
JORGE Source: Nasal Swab
Specimen Description:
Abnormal Lab Results
08/03/24
00:53
Absolute Neuts (auto) 7.1 H 10^3/uL
(1.4-6.5)
Neutrophils % 75.6 H %
(42.2-75.2)
Lymphocytes % 18.5 L %
(20.5-51.1)
Glucose 103 H mg/dl
(70-99)
08/03/24 00:53
08/03/24 00:53
Vital Signs
Initial and Last Documented VS:
Initial Vital Signs
Temp Pulse Resp BP Pulse Ox
98.4 F 74 20 117/84 100
08/03/24 00:31 08/03/24 00:31 08/03/24 00:31 08/03/24 00:31 08/03/24 00:31
Last Documented Vital Signs
Temp Pulse Resp BP Pulse Ox
98.4 F 74 20 126/88 98
08/03/24 00:31 08/03/24 02:24 08/03/24 00:31 08/03/24 02:24 08/03/24 02:24
MDM/Problems Addressed
Differential Diagnosis Includes:
HPI and MDM Narrative:
24-year-old male presenting with multiple complaints. Patient states he has been feeling unwell for the past 2 weeks. He states he sometimes feels short of breath. He sometimes has chest pressure. He sometimes feels anxious. He is worried about
intermittent low heart rates in the 50s and high blood pressure. He is unsure if this is anxiety or not. He did follow-up with his PCP and was told that he may benefit from ENT evaluation.
On exam, patient is anxious and nervous. We do long conversation that his symptoms are somewhat unconcerning to me. Regardless, we will obtain basic blood work. He complains of neck pain and points to his thyroid. Will obtain thyroid function
tests but discussed outpatient ultrasound would be more beneficial. TMs are clear. He has no tenderness to carotid palpation. He is extremely well-appearing and nontoxic. No clinical signs of intracranial mass effect or hemorrhage. Lungs are
clear.
Obtain basic blood work and chest x-ray and an EKG
Physical exam
General: Well appearing and non-toxic
HEENT: protecting airway. TMs clear
Neck: supple. No palpable mass on anterior neck
CV: No evidence of cyanosis. Regular rate and rhythm
Resp: No accessory muscle use. Lungs clear
Abd: Non-distended
Extremities: No deformities
Neuro: alert
Psych: Anxious
Skin: Intact
Problems Addressed including Acute and Chronic Conditions affecting care:
1. Multiple complaints
Acuity: acute
Prognosis: stable
Details: Patient understands that is hard to pinpoint 1 diagnosis. He does acknowledge that this could be anxiety related. Regardless, we will obtain basic blood work and chest x-ray
Updates
Chest x-ray clear. Blood work without clinically significant abnormalities. Discussed follow-up with PCP
Differential Diagnosis (but not limited to): Anxiety, viral syndrome, hyperthyroidism
Testing considered: CT head but he states he had CT head in the past which was negative
Drug therapy (if applicable): OTC meds, please see d/c instruction regarding Rx drugs
Amount and/or Complexity of Data Reviewed
Clinical info obtained from: Patient
External data reviewed: N/A
Labs I independently reviewed (but not limited to): White blood cell count normal. TSH normal
Radiology: X-ray independently reviewed: Chest x-ray clear
Pulse Ox: not hypoxic
EKG independently reviewed: Sinus rhythm, normal axis, no STEMI
Chemical Reclamation Equipment Operator: N/A
Critical Care: N/A
Risk of Complication:
Social Determinants of health: Good social support
Discussed with other providers: N/A
Escalation of Care includes Admit/Obs: After being observed in the Emergency Department, pt stable for discharge.
Occasional wrong word or 'sound a like' substitutions may have occurred due to the inherent limitations of voice recognition software. Read the chart carefully and recognize, using context, where substitutions have occurred.
*Critical Care Note
Total Time (30-74mins, 75-104mins- exclusive of procedures): Not Applicable
ED Attending Note
-
Portions of this chart may have been created with voice recognition software.� Occasional wrong word or��sound alike� substitutions may have occurred due to the inherent limitations of voice recognition software.
Discharge Plan
Departure
Patient Disposition: Home (Routine Discharge)
Date of Disposition: 08/03/24
Time of Disposition: 03:05
Patient with high blood pressure during this ER visit?: No
Discharge Problem:
Dyspnea
Prescriptions:
No Action
acetaminophen 325 mg Tablet
650 mg PO Q4HPRN PRN (Reason: mild pain)
ibuprofen 600 mg tablet
600 mg PO DAILYPRN PRN (Reason: neck pain)
pantoprazole 20 mg Tablet,Delayed Release (Dr/Ec)
40 mg PO DAILY
escitalopram oxalate [Lexapro] 10 mg Tablet
20 mg PO DAILY
dicyclomine 10 mg Capsule
10 mg PO BID PRN (Reason: abd pain)
Referrals:
SHARON MONTES DE OCA CRNP [Family Provider] -
Activity Restrictions/Additional Instructions:
Please return for any worsening symptoms.
You may return at any time if you have further concerns.
Please follow up with your doctor at the first available appointment, preferably this week.
Thank you for choosing [facility].
Interventions
Interventions:
*Risk Screen - Suicide Last Done: 08/03/24 00:31
*General Assessment Last Done: 08/03/24 00:31
*Neglect/Abuse Screening Last Done: 08/03/24 00:31
*ED- Fall Risk Assessment Last Done: 08/03/24 00:31
*ED COVID-19 Vaccine History Last Done: 08/03/24 00:31
ED- Cardiac Assessment Last Done: 08/03/24 01:42
ED- Neurological Assessment Last Done: 08/03/24 01:42
ED- Pulmonary Assessment Last Done: 08/03/24 01:42
Discharge Date and Time
Print Language: ICELANDIC
[2024-08-03 01:55] LABS: COVID-19 Antigen Negative (Negative)
[2024-08-03 02:24] VITALS: BP 126/88
[2024-08-03 02:30] LABS: TSH Reflex To Free T4 1.22 uIU/ml (0.47-4.68)
[2024-08-03 02:57] VITALS: BMI 30.4
== END 2024-08-03 02:10 | disposition home or self-care (01) ==
LOC: EMR 00:27
PROVIDERS: EMERGENCY PHYSICIAN Student in an Organized Health Care Education/Training Program; FAMILY PHYSICIAN Nurse Practitioner Gerontology
DX: R06.00 Dyspnea, unspecified (principal); R53.1 Weakness; K21.9 Gastro-esophageal reflux disease without esophagitis; F41.8 Other specified anxiety disorders; Z87.442 Personal history of urinary calculi
CPT/HCPCS: 99283; 71046; 80053; 84443; 85025; 87502; 87811; 93005

== ENCOUNTER 2024-09-07 18:05 | Emergency (ER) | payer BC, SELFPAY ==
[2024-09-07 18:15] VITALS: BP 125/78
[2024-09-07 18:37] LABS: % Basophils 0.6 % (0-2); % Eosinophils 1.5 % (0-6); % Immature Granulocytes 0.3 % (0-0.5); % Monocytes 4.5 % (1.7-9.3); % Neutrophils 63.1 % (42.2-75.2); Absolute Eosinophils 0.1 10^3/uL (0-0.7); Absolute Lymphocytes 1.9 10^3/uL (1.2-3.4); Absolute Monocytes 0.3 10^3/uL (0.1-0.6); Absolute Neutrophils 4.1 10^3/uL (1.4-6.5); Hematocrit 42.8 % (39.0-52.0); Hemoglobin 15.2 g/dL (13.0-18.0); Mean Corp Hgb Conc. 35.5 g/dL (33.0-37.0); Mean Corpuscular Hgb 30.9 pg (27.0-31.0); Mean Platelet Volume 8.8 fL (7.4-10.4); Nucleated Red Blood Cells % 0 % (-); Platelet Count 236 10^3/uL (130-400); Red Blood Cell Count 4.92 10^6/uL (4.70-6.10); Red Cell Dist. Width 12.3 % (11.5-14.5); White Blood Cell Count 6.5 10^3/uL (4.8-10.8)
[2024-09-07 18:52] LABS: ALT (SGPT) 34 U/L (0-50); AST (SGOT) 21 U/L (17-59); Albumin 4.8 g/dl (3.5-5.0); Alkaline Phosphatase 60 U/L (38-126); Blood Urea Nitrogen 18 mg/dl (9-20); Calcium 9.2 mg/dl (8.4-10.2); Carbon Dioxide 32 mmol/L (22-30); Chloride 100 mmol/L (98-107); Glucose 99 mg/dl (70-99); Potassium 4.2 mmol/L (3.5-5.1); Sodium 140 mmol/L (135-145); Total Bilirubin 0.7 mg/dl (0.2-1.3); Total Protein 7.3 g/dl (6.3-8.2); eGFR > 60.00
[2024-09-07 19:00] LABS: Troponin I < 0.012 ng/ml
[2024-09-07 19:22] LABS: TSH Reflex To Free T4 1.75 uIU/ml (0.47-4.68)
--- NOTE | 2024-09-07 19:52 | ED.GENMED ---
History of Present Illness
General
Chief Complaint: Chest Pain
Time Seen by Provider: 09/07/24 19:22
History of Present Illness
History of Present Illness:
24-year-old male presents to the emergency department for evaluation of variable chest and left arm discomfort that has been ongoing for the past week. Seems to be worse with left arm movement. Reports episodic periods of sharp pain to the left
chest as well as left upper extremity rating to the left jaw. Last less than 10 seconds or less. No associated fevers or chills. No pleuritic pain.
Past History
Past History
ED Past Medical History: GERD, Psychiatric (Anxiety, Depression) and Other (Neck pain ,Renal calculus, Herniated disc, Flat feet)
ED Past Surgical History: None
Social History
Tobacco: Non-smoker
Alcohol: Occasional
Personal: Single
Living: with family
Review of Systems
Review of Systems
Allergies reviewed?: Yes
All Other Systems: ROS reviewed and negative except as documented in HPI and ROS
Phy Exam
Physical Exam
Physical Exam:
GEN: Well appearing, NAD, WDWN
HEENT: Oral mucosa moist, no scleral icterus
Cardiac: Regular rate and rhythm, no murmurs
Lung: No respiratory distress, no tachypnea
MSK: No gross deformity or injuries
Skin: Good color, no pallor or jaundice, no rashes
Neuro: AO x3, moves all extremities freely
Psych: Calm, cooperative
Scores
Heart Score for Chest Pain Patients
STEMI patient?: No
History: Slightly or Non-Suspicious
ECG: Normal
Age: </= 45 years
Risk Factors: No Risk Factors
Troponin: </= Normal Limit
Heart Score for Chest Pain Patients: 0
Heart Score Risk: 2.5% MACE over next 6 weeks
Course
Orders/Labs/Results
Orders:
Orders
09/07/24 18:07
Electrocardiogram (*1) Urgent
Reason for Study: Chest Pain
09/07/24 18:08
EKG- Treatment ONCE
09/07/24 18:26
Complete Blood Count/With Diff Urgent
Comprehensive Metabolic Panel Urgent
TSH Reflex To Free T4 Urgent
Troponin I Urgent
Abnormal Lab Results
09/07/24
18:26
Carbon Dioxide 32 H mmol/L
(22-30)
09/07/24 18:26
09/07/24 18:26
Vital Signs
Initial and Last Documented VS:
Initial Vital Signs
Temp Pulse Resp BP Pulse Ox
97.8 F 75 18 125/78 98
09/07/24 18:15 09/07/24 18:15 09/07/24 18:15 09/07/24 18:15 09/07/24 18:15
Last Documented Vital Signs
Temp Pulse Resp BP Pulse Ox
97.8 F 74 16 125/78 98
09/07/24 18:15 09/07/24 20:00 09/07/24 20:00 09/07/24 18:15 09/07/24 20:00
MDM/Problems Addressed
MDM/Problems Addressed:
Workup is reassuring, doubt ACS in this young previously healthy patient. Likely a cervical radiculopathy versus musculoskeletal etiology
*Critical Care Note
Total Time (30-74mins, 75-104mins- exclusive of procedures): Not Applicable
ED Attending Note
-
Portions of this chart may have been created with voice recognition software.� Occasional wrong word or��sound alike� substitutions may have occurred due to the inherent limitations of voice recognition software.
Discharge Plan
Departure
Patient Disposition: Home (Routine Discharge)
Date of Disposition: 09/07/24
Time of Disposition: 19:52
Patient with high blood pressure during this ER visit?: No
Discharge Problem:
Cervical radiculopathy
Instructions: Radiculopathy of the neck and back (including sciatica)
Prescriptions:
New
meloxicam 15 mg tablet
15 mg PO DAILY Qty: 10 0RF
No Action
acetaminophen 325 mg Tablet
650 mg PO Q4HPRN PRN (Reason: mild pain)
ibuprofen 600 mg tablet
600 mg PO DAILYPRN PRN (Reason: neck pain)
pantoprazole 20 mg Tablet,Delayed Release (Dr/Ec)
40 mg PO DAILY
escitalopram oxalate [Lexapro] 10 mg Tablet
20 mg PO DAILY
dicyclomine 10 mg Capsule
10 mg PO BID PRN (Reason: abd pain)
hydroxyzine HCl 25 mg tablet
25 mg PO BID PRN (Reason: anxiety) Qty: 20 0RF
Interventions
Interventions:
*Risk Screen - Suicide Last Done: 09/07/24 18:18
*General Assessment Last Done: 09/07/24 20:02
*Neglect/Abuse Screening Last Done: 09/07/24 18:18
*ED- Fall Risk Assessment Last Done: 09/07/24 20:02
*Nursing Disposition Last Done: 09/07/24 20:23
ED- Cardiac Assessment Last Done: 09/07/24 19:59
Discharge Date and Time
Discharge Date/Time: 09/07/24 20:24
Print Language: KHMER
== END 2024-09-07 20:24 | disposition home or self-care (01) ==
LOC: EMR 18:05
PROVIDERS: EMERGENCY PHYSICIAN Emergency Medicine; FAMILY PHYSICIAN Nurse Practitioner Gerontology
DX: M54.12 Radiculopathy, cervical region (principal); M79.602 Pain in left arm; Z87.442 Personal history of urinary calculi
CPT/HCPCS: 99284; 80053; 84443; 84484; 85025; 93005

== ENCOUNTER 2024-09-13 17:54 | Emergency (ER) | payer BC, SELFPAY ==
[2024-09-13 18:23] LABS: Urine Albumin 1+ (Neg - Trace); Urine Bilirubin Negative (Negative); Urine Character Clear (Clear); Urine Color Yellow; Urine Glucose Negative (Negative); Urine Ketone Negative (Negative); Urine Leukocyte 1+ (Negative); Urine Nitrite Negative (Negative); Urine Occult Blood 1+ (Negative); Urine Urobilinogen 1+ (Neg - 1+)
[2024-09-13 18:42] LABS: ALT (SGPT) 35 U/L (0-50); AST (SGOT) 21 U/L (17-59); Albumin 4.8 g/dl (3.5-5.0); Alkaline Phosphatase 51 U/L (38-126); Blood Urea Nitrogen 19 mg/dl (9-20); Calcium 9.6 mg/dl (8.4-10.2); Carbon Dioxide 28 mmol/L (22-30); Chloride 107 mmol/L (98-107); Glucose 105 mg/dl (70-99); Lipase 157 U/L (23-300); Potassium 4.1 mmol/L (3.5-5.1); Sodium 142 mmol/L (135-145); Total Bilirubin 0.9 mg/dl (0.2-1.3); Total Protein 7.6 g/dl (6.3-8.2); eGFR > 60.00
[2024-09-13 18:44] LABS: % Basophils 0.7 % (0-2); % Eosinophils 0.7 % (0-6); % Immature Granulocytes 0.2 % (0-0.5); % Lymphocytes 36.7 % (20.5-51.1); % Monocytes 6.1 % (1.7-9.3); % Neutrophils 55.6 % (42.2-75.2); Absolute Monocytes 0.3 10^3/uL (0.1-0.6); Hematocrit 42.6 % (39.0-52.0); Hemoglobin 15.7 g/dL (13.0-18.0); Mean Corp Hgb Conc. 36.9 g/dL (33.0-37.0); Mean Corpuscular Hgb 31.3 pg (27.0-31.0); Mean Corpuscular Volume 84.9 fL (80.0-94.0); Mean Platelet Volume 8.6 fL (7.4-10.4); Nucleated Red Blood Cells % 0 % (-); Platelet Count 238 10^3/uL (130-400); Red Blood Cell Count 5.02 10^6/uL (4.70-6.10); Red Cell Dist. Width 12.3 % (11.5-14.5); White Blood Cell Count 5.5 10^3/uL (4.8-10.8)
[2024-09-13 19:05] LABS: Urine Bacteria Few (Negative); Urine Mucus Moderate; Urine Red Blood Cell 0-2 /HPF (0-2); Urine Squamous Cell 0-2 /LPF (Few)
[2024-09-13 21:00] VITALS: BP 133/85
[2024-09-13 22:00] VITALS: BP 116/81
--- NOTE | 2024-09-13 22:34 | ED.GENMED ---
History of Present Illness
General
Chief Complaint: Abdominal Pain
Time Seen by Provider: 09/13/24 21:10
History of Present Illness
History of Present Illness:
24-year-old male with history of GERD and anxiety presenting to the emergency department for periumbilical abdominal pain. Patient reports symptoms have been ongoing for the past several months. Reports short episodes of sharp pain that last about
5 seconds in duration. However, in the past few days, felt that it has been worsening, lasting longer. Denies any history of abdominal surgeries in the past. Denies any association with food. Denies any vomiting or fever. Denies diarrhea.
Feels that the pain goes from his umbilical region down to the genitals. Denies any dysuria. Denies additional acute medical complaint
Past History
Past History
ED Past Medical History: GERD, Psychiatric (Anxiety, Depression) and Other (Neck pain ,Renal calculus, Herniated disc, Flat feet)
ED Past Surgical History: None
Social History
Tobacco: Non-smoker
Alcohol: Occasional
Personal: Single
Living: with family
Phy Exam
Physical Exam
Physical Exam:
General: Well-appearing, no clinical signs of dehydration, nontoxic and in no acute distress
HEENT: protecting airway
Neck: appears supple
CV: Normal heart rate, regular rhythm
Resp: No accessory muscle use, no increased work of breathing, lungs clear to auscultation bilaterally
Abd: Soft and non-distended, minimal periumbilical pain without rebound or guarding
Extremities: No deformities, no swelling
Neuro: alert, no focal neurologic deficit
: Unremarkable, no testicular tenderness or swelling. No penile discharge
Rectal: deferred
Psych: Normal affect
Skin: Intact
Course
Orders/Labs/Results
Orders:
Orders
09/13/24 18:16
Complete Blood Count/With Diff Urgent
Comprehensive Metabolic Panel Urgent
Lipase Urgent
Urinalysis Reflex To Culture Urgent
Date Specimen was Collected: 09/13/24
Time Specimen was Collected: 18:07
Urine Microscopic Reflex Cult Urgent
Urine Culture Urgent
JORGE Source: U
Specimen Description:
Date Specimen was Collected: 09/13/24
Time Specimen was Collected: 18:07
Abnormal Lab Results
09/13/24
18:16
MCH 31.3 H pg
(27.0-31.0)
Glucose 105 H mg/dl
(70-99)
Ur Occult Blood Reflex 1+ A
(Negative)
Leukocyte Esterase Rfl 1+ A
(Negative)
Urine Bacteria (Reflex) Few A
(Negative)
Urine Albumin (Reflex) 1+ A
(Neg - Trace)
09/13/24 18:16
09/13/24 18:16
Vital Signs
Initial and Last Documented VS:
Initial Vital Signs
Temp Pulse Resp Pulse Ox
98.5 F 105 18 97
09/13/24 18:04 09/13/24 18:04 09/13/24 18:04 09/13/24 18:04
Last Documented Vital Signs
Temp Pulse Resp Pulse Ox
98.5 F 105 18 97
09/13/24 18:04 09/13/24 18:04 09/13/24 18:04 09/13/24 18:04
MDM/Problems Addressed
MDM/Problems Addressed:
24-year-old male with history of GERD and anxiety presenting to the emergency department for periumbilical pain for the past several months. Vital signs on arrival are significant for mild tachycardia, however very anxious.
On exam patient is resting comfortably, no acute distress or discomfort. He is afebrile, nontoxic. Benign examination of the abdomen, soft and nondistended with minimal tenderness to the periumbilical region. No focal tenderness to the right
lower quadrant. Given duration of symptoms, lower suspicion for severe intra-abdominal process or infection, mainly without significant concern for appendicitis. Patient had screening laboratory analysis prior to my assessment, no leukocytosis,
normal electrolyte panel. Urinalysis without any sign of infection. Genital exam performed, no tenderness to the testicles, no rashes or lesions to the penis. On review of EMR, patient was seen in the hospital in June for abdominal pain,
unremarkable CT abdomen and pelvis. Patient expresses concern for his aorta. Given his age and absence of any risk factors, explained very low concern for aortic pathology. CT again reviewed, aorta normal in caliber. At this time do not feel
patient requires any advanced imaging of his abdomen. Did offer advanced imaging given patient's symptoms and duration of pain, however in shared decision making, explained low utility and risks of radiation. Patient opting to follow-up with his
doctor and continue to monitor his symptoms. Feel stable for discharge. Return precautions discussed and patient verbalized understanding
*Critical Care Note
Total Time (30-74mins, 75-104mins- exclusive of procedures): Not Applicable
ED Attending Note
-
Portions of this chart may have been created with voice recognition software.� Occasional wrong word or��sound alike� substitutions may have occurred due to the inherent limitations of voice recognition software.
Discharge Plan
Departure
Patient Disposition: Home (Routine Discharge)
Date of Disposition: 09/13/24
Time of Disposition: 22:39
Patient with high blood pressure during this ER visit?: No
Condition: Good
Discharge Problem:
Abdominal pain
Instructions: Abdominal Pain
Prescriptions:
No Action
acetaminophen 325 mg Tablet
650 mg PO Q4HPRN PRN (Reason: mild pain)
ibuprofen 600 mg tablet
600 mg PO DAILYPRN PRN (Reason: neck pain)
pantoprazole 20 mg Tablet,Delayed Release (Dr/Ec)
40 mg PO DAILY
escitalopram oxalate [Lexapro] 10 mg Tablet
20 mg PO DAILY
dicyclomine 10 mg Capsule
10 mg PO BID PRN (Reason: abd pain)
hydroxyzine HCl 25 mg tablet
25 mg PO BID PRN (Reason: anxiety) Qty: 20 0RF
meloxicam 15 mg tablet
15 mg PO DAILY Qty: 10 0RF
Referrals:
SHARON MONTES DE OCA CRNP [Family Provider] -
Activity Restrictions/Additional Instructions:
You were seen in the emergency department for abdominal pain
You were found to have normal blood work
Please follow-up closely with your primary care physician and continue to monitor your symptoms.
Return to the emergency department for any worsening of your symptoms, or any development of chest pain, difficulty breathing, abdominal pain with persistent vomiting and inability to tolerate food or liquid by mouth (concern for dehydration),
weakness, headache or confusion, fever greater than 100.4, or any additional symptoms that are concerning to you.
Thank you for choosing [facility].
Interventions
Interventions:
*Risk Screen - Suicide Last Done: 09/13/24 18:04
*General Assessment Last Done: 09/13/24 18:04
Discharge Date and Time
Print Language: BOTSWANAN
== END 2024-09-13 22:52 | disposition home or self-care (01) ==
LOC: EMR 17:54
PROVIDERS: Emergency Medicine; EMERGENCY PHYSICIAN Student in an Organized Health Care Education/Training Program; FAMILY PHYSICIAN Nurse Practitioner Gerontology
DX: R10.33 Periumbilical pain (principal); K21.9 Gastro-esophageal reflux disease without esophagitis; Z87.442 Personal history of urinary calculi
CPT/HCPCS: 99283; 80053; 81003; 81015; 83690; 85025; 87086

== ENCOUNTER 2024-11-19 00:11 | Emergency (ER) | payer BC, SELFPAY ==
[2024-11-19 00:13] VITALS: BP 135/91
[2024-11-19 00:37] LABS: Hematocrit 44.1 % (39.0-52.0); Hemoglobin 15.8 g/dL (13.0-18.0); Mean Corp Hgb Conc. 35.8 g/dL (33.0-37.0); Mean Corpuscular Volume 87.7 fL (80.0-94.0); Nucleated Red Blood Cells % 0 % (-); Platelet Count 245 10^3/uL (130-400); Red Cell Dist. Width 12.3 % (11.5-14.5)
[2024-11-19 00:40] VITALS: BMI 31.2
--- NOTE | 2024-11-19 00:40 | ED.GENMED ---
History of Present Illness
General
Chief Complaint: Abdominal Pain
Source: patient
Exam Limitations: none
Time Seen by Provider: 11/19/24 00:40
Nursing documentation reviewed up to this point in time: agreed with
History of Present Illness
History of Present Illness:
Note:
CHIEF COMPLAINT(S)
Diffuse abdominal pain.
HISTORY OF PRESENT ILLNESS
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 He reports that sitting in a chair appears to exacerbate the discomfort, with a noted increase in pain intensity when flexing at
the waist. Accompanying symptoms include chills, nausea, and vomiting. Additionally, he has experienced several episodes of loose stools over the past month, though he states that his bowel movements are typically normal. He denies any urinary
retention or incontinence. The patient also describes pain in the left extremity originating from the lower back and radiating down the left leg.
SOCIAL HISTORY
The patient denies any drug use and does not smoke tobacco. He reports no alcohol consumption in over a month, although he previously drank socially while in college.
FAMILY HISTORY
Denies any family history.
REVIEW OF SYSTEMS
- Gastrointestinal: Reports diffuse abdominal pain for the last month, with associated nausea, vomiting, and periodic loose stools.
- Musculoskeletal: Left extremity pain radiating from the lower back down the left leg.
PHYSICAL EXAM
General: Alert, no acute distress.
Skin: Warm, dry.
Head: Normocephalic, atraumatic.
Neck: Supple, trachea midline.
Eye, Ear, Nose, Mouth, and Throat: Oral mucosa moist.
Cardiovascular: Normal peripheral perfusion, No edema.
Respiratory: Respirations are non-labored.
Gastrointestinal: Abdomen nondistended.
Back: Normal range of motion, Normal alignment.
Musculoskeletal: Normal range of motion, normal strength.
Neurological: Alert and oriented to person, place, time, and situation, No focal neurological deficit observed.
Psychiatric: Cooperative, appropriate mood & affect.
PLAN
1. Further evaluation of abdominal pain, including assessing for potential gastrointestinal or musculoskeletal causes.
2. Review potential lifestyle modifications to alleviate symptoms associated with prolonged sitting.
3. Consider imaging or further diagnostic tests for left extremity pain and its relation to back issues.
DIFFERENTIAL DIAGNOSIS
The differential diagnosis includes, in no particular order and is not limited to:
1. Enteritis
2. Gastroenteritis
3. Musculoskeletal strain or injury
4. Irritable bowel syndrome
5. Inflammatory bowel disease
6. Sciatica
7. Peptic ulcer disease
8. Gallstones
9. Gastroesophageal reflux disease
10. Appendicitis
Disposition:
SUMMARY OF ENCOUNTER
The patient is a 24-year-old male presenting with abdominal pain and low back pain. A CT scan of the abdomen and pelvis without IV contrast was performed, revealing a normal appendix and a few small loops of bowel wall thickening, suggesting
enteritis. The patient was managed with NSAIDs for low back pain.
DISPOSITION
Discharge.
ASSESSMENT
The patients abdominal pain is likely due to enteritis as suggested by the CT findings. Low back pain is being managed with NSAIDs.
INDEPENDENT REVIEW OF LABS AND INTERPRETATION OF TESTS
My independent interpretation of the CT scan of the abdomen and pelvis shows a normal appendix and a few small loops of bowel wall thickening, suggesting enteritis.
MEDICATION RECONCILIATION
Prescription for NSAIDs was provided for low back pain.
MEDICAL DECISION MAKING
- Complexity of Data Reviewed: DDx includes irritable bowel syndrome, gastroenteritis, musculoskeletal strain or injury, hernia, inflammatory bowel disease, sciatica, peptic ulcer disease, gallstones, gastroesophageal reflux disease, and
appendicitis.
- Data:
Category 1
My independent interpretation of the CT scan of the abdomen and pelvis shows a normal appendix and a few small loops of bowel wall thickening, suggesting enteritis.
- Risk: Prescription medication was prescribed, specifically NSAIDs for low back pain, and the patient was discharged with instructions for follow-up.
DIAGNOSIS
1. Enteritis (K52.9)
2. Low back pain (M54.5)
Past History
Past History
ED Past Medical History: GERD, Psychiatric (Anxiety, Depression) and Other (Neck pain ,Renal calculus, Herniated disc, Flat feet)
ED Past Surgical History: None
Social History
Tobacco: Non-smoker
Alcohol: Occasional
Personal: Single
Living: with family
Phy Exam
Physical Exam
Physical Exam:
.
Course
Orders/Labs/Results
Orders:
Orders
11/19/24 00:26
Complete Blood Count/With Diff Urgent
Comprehensive Metabolic Panel Urgent
Lipase Urgent
11/19/24 02:27
CT Abd/pel Without Iv Or Oral Urgent
Comment: changed to w/o for poss allergy per attending
Reason For Exam: periumbilical pain
11/19/24 02:30
0.9% Sodium Chloride 1000 ml [Nss] 1,000 ml IV BOLUS
Abnormal Lab Results
11/19/24
00:26
MCH 31.4 H pg
(27.0-31.0)
Carbon Dioxide 31 H mmol/L
(22-30)
11/19/24 00:26
11/19/24 00:26
Vital Signs
Initial and Last Documented VS:
Initial Vital Signs
Temp Pulse Resp BP Pulse Ox
98.7 F 97 16 135/91 97
11/19/24 00:13 11/19/24 00:13 11/19/24 00:13 11/19/24 00:13 11/19/24 00:13
Last Documented Vital Signs
Temp Pulse Resp BP Pulse Ox
98.7 F 72 16 118/75 98
11/19/24 00:13 11/19/24 02:53 11/19/24 02:53 11/19/24 02:53 11/19/24 04:02
*Pulse Oximetry
SaO2: 97
Oxygen Mode of Delivery: Room air
Patient hypoxic: no
*Critical Care Note
Total Time (30-74mins, 75-104mins- exclusive of procedures): Not Applicable
Update Note
Update Note:
NAME: FAISAL FULLER
DATE OF EXAM: 11/19/2024
Patient No: [id number]
Physician: KEITH^Jigar Obstruction or perforation.
Date of : 2000
Past Medical History (entered by Technologist):
Reason For Exam (entered by Technologist):
Other Notes (entered by Technologist): has had waxing and waning mid abd pain x 1 wk, radiates to his back. No vomiting, no nausea, has had intermittent diarrhea. Has been able to eat and drink.
Additional Information (per Vision Radiologist):
CT abdomen and pelvis without IV contrast
IMPRESSION:
Limited assessment without IV contrast.
Appendix is normal. No bowel obstruction or perforation. Few loops of mild small bowel wall thickening suggesting enteritis.
No cholecystitis or pancreatitis. Spleen and adrenal glands normal. No free fluid or free air.
Abdominal aorta is of normal caliber. Small fat-containing umbilical hernia. Scattered mesenteric lymph nodes are likely reactive.
Finalized at 3:50 AM EST
Durga Silveira M.D.
This report has been electronically signed and verified by the Radiologist whose name is printed above.
ED Attending Note
-
Portions of this chart may have been created with voice recognition software.� Occasional wrong word or��sound alike� substitutions may have occurred due to the inherent limitations of voice recognition software.
Discharge Plan
Departure
Patient Disposition: Home (Routine Discharge)
Date of Disposition: 11/19/24
Time of Disposition: 04:18
Patient with high blood pressure during this ER visit?: Yes
Discharge Problem:
Enteritis, Low back pain
Instructions: Clear Liquid Diet, Acid Reflux and GERD in Adults (DC), Low back pain - ED discharge instructions, BLOOD PRESSURE
Prescriptions:
New
famotidine [Pepcid] 20 mg tablet
20 mg PO DAILY Qty: 20 0RF
diclofenac sodium 75 mg tablet,delayed release (DR/EC)
75 mg PO BID Qty: 10 0RF
No Action
acetaminophen 325 mg Tablet
650 mg PO Q4HPRN PRN (Reason: mild pain)
ibuprofen 600 mg tablet
600 mg PO DAILYPRN PRN (Reason: neck pain)
pantoprazole 20 mg Tablet,Delayed Release (Dr/Ec)
40 mg PO DAILY
escitalopram oxalate [Lexapro] 10 mg Tablet
20 mg PO DAILY
dicyclomine 10 mg Capsule
10 mg PO BID PRN (Reason: abd pain)
hydroxyzine HCl 25 mg tablet
25 mg PO BID PRN (Reason: anxiety) Qty: 20 0RF
meloxicam 15 mg tablet
15 mg PO DAILY Qty: 10 0RF
Referrals:
SHARON MONTES DE OCA CRNP [Family Provider, Family Practice]
Activity Restrictions/Additional Instructions:
Your prescriptions were sent electronically to the pharmacy that you specified.
Thank You for choosing [facility].
It was a pleasure meeting you and taking part in your care. We hope for your continued healing and wellness.
Please read discharge instructions in their entirety. However, they are for general education and may not describe your exact diagnosis at discharge. Information on your ER visit and medical conditions were discussed with you along with appropriate
follow up information...
If indicated, please take your medications as instructed and indicated on discharge paperwork.
Please schedule a follow up appointment as directed. Call to schedule an appointment
Please return to the emergency department with ANY change in, persisting, or worsening of symptoms. If any of your symptoms do not improve, or persist, or become more severe within 6-12 hours, please return to the emergency department for further
care.
Please return to the emergency department if you develop a headache, neck pain/stiffness, fever greater than 100.4F, chest pain, shortness of breath, persistent nausea, vomiting, slurred speech, difficulty walking, numbness/tingling, weakness, signs
of infection or any other symptoms that are worrisome to you.
If you have any questions or concerns please do not hesitate to call the Hospital at or E-mail me directly at [email or web address]
Interventions
Interventions:
*Risk Screen - Suicide Last Done: 11/19/24 00:13
*General Assessment Last Done: 11/19/24 00:39
*Neglect/Abuse Screening Last Done: 11/19/24 00:39
*ED- Fall Risk Assessment Last Done: 11/19/24 00:39
*ED COVID-19 Vaccine History Last Done: 11/19/24 00:39
[id number] Assessment Last Done: 11/19/24 00:41
Discharge Date and Time
Print Language: CHINESE
[2024-11-19 00:45] VITALS: BP 127/87
[2024-11-19 02:21] LABS: ALT (SGPT) 37 U/L (0-50); AST (SGOT) 22 U/L (17-59); Albumin 4.6 g/dl (3.5-5.0); Alkaline Phosphatase 59 U/L (38-126); Blood Urea Nitrogen 14 mg/dl (9-20); Calcium 9.1 mg/dl (8.4-10.2); Carbon Dioxide 31 mmol/L (22-30); Chloride 105 mmol/L (98-107); Estimated Creatinine Clearance > 125 ml/min; Glucose 93 mg/dl (70-99); Lipase 123 U/L (23-300); Potassium 3.9 mmol/L (3.5-5.1); Sodium 142 mmol/L (135-145); Total Protein 7.3 g/dl (6.3-8.2); eGFR > 60.00
--- NOTE | 2024-11-19 02:28 | DOWNTIME ---
There was a [employer] Downtime on 11/19/2024 from 0100 to 11/19/2024 at 0220. Downtime documentation of patient's care, including medication administrations, has been reconciled in the electronic record per guidelines. Refer to the
patient's paper chart under the miscellaneous tab to see printed paper medication records and downtime forms.
[2024-11-19] MEDS: NSS 1000 IV (02:36)
[2024-11-19 02:53] VITALS: BP 118/75
[2024-11-19 04:02] VITALS: BP 120/73
== END 2024-11-19 04:28 | disposition home or self-care (01) ==
LOC: EMR 00:11
PROVIDERS: EMERGENCY PHYSICIAN Student in an Organized Health Care Education/Training Program; FAMILY PHYSICIAN Nurse Practitioner Gerontology
DX: K52.9 Noninfective gastroenteritis and colitis, unspecified (principal); M54.50 Low back pain, unspecified; K42.9 Umbilical hernia without obstruction or gangrene
CPT/HCPCS: 96360; 99284; 74176; 80053; 83690; 85025